=== PATIENT | male | born 1985 | race Two or more races ===

== ENCOUNTER 2021-03-17 09:07 | Emergency (ER) | payer OTHER, SELFPAY ==
--- NOTE | ~2021-03-17 | XR_ITS ---
EXAMINATION: XR CHEST CLINICAL INFORMATION: Productive cough COMPARISON: None TECHNIQUE: 2 views of the chest were obtained. FINDINGS: No significant abnormality is noted involving the heart, lungs, mediastinum, bony thorax or soft tissues. XR/XR chest 2V IMPRESSION: Unremarkable examination.
--- NOTE | ~2021-03-17 | CT_ITS ---
EXAMINATION: CT ABDOMEN AND PELVIS WITH CONTRAST CLINICAL INFORMATION: URI symptoms with associated diarrhea and right lower quadrant abdominal pain. COMPARISON: Chest x-ray performed same day TECHNIQUE: Multidetector volumetric images were obtained from the superior aspect of the liver through the pubic symphysis following administration 85 mL of Omnipaque 350 intravenous contrast. Sagittal and coronal reformatted images were obtained on the technologist's workstation. Oral contrast: No This CT examination was performed using dose optimization techniques as appropriate, variously including the following: *Automated exposure control *Adjustment of mA and/or kV according to patient size (this includes techniques or standardized protocols for targeted exams where dose is matched to indication/reason for exam; i.e. extremities or head) *Use of iterative reconstruction technique DLP: 611 mGy-cm FINDINGS: LUNG BASES: The visualized lung bases are unremarkable. LIVER, GALLBLADDER, AND BILIARY TREE: The liver is normal in size, shape, and attenuation. No focal hepatic lesion or biliary ductal dilatation is present. The gallbladder is unremarkable with no evidence of radiopaque gallstones, gallbladder wall thickening, or obvious pericholecystic inflammatory changes. PANCREAS: Unremarkable. SPLEEN: Unremarkable. ADRENAL GLANDS: Unremarkable. KIDNEYS AND URETERS: The kidneys are normal in size, shape, and attenuation. No hydronephrosis, hydroureter, or calculi seen. No perinephric stranding. BLADDER: Unremarkable. GASTROINTESTINAL TRACT: The small and large bowel are unremarkable. The appendix is unremarkable. ABDOMINAL WALL: No significant hernia is appreciated. LYMPH NODES: Normal. VASCULAR: Unremarkable. PELVIC VISCERA: Unremarkable. OSSEOUS STRUCTURES: Unremarkable. CT/CT abdomen pelvis w con IMPRESSION: No significant abnormality.
[2021-03-17 09:48] VITALS: BP 120/86; PULSE 81; RESP 16; TEMP 36.3; O2SAT 96
[2021-03-17 10:01] VITALS: BP 124/82; PULSE 81; RESP 20; TEMP 36.3; O2SAT 97; BMI 30.5
--- NOTE | 2021-03-17 10:09 | PC.NURSE ---
Pt alert and oriented x3, vss. Pt states since last tuesday he has been having full body aches and stuffy nose. He states last night he took nyquil with some relief. Pt denies any medical issues/any prescriptive meds. No apparent distress noted, pt awaiting ed provider.
[2021-03-17 10:46] LABS: IDNOW Serial# 9DD0AD1C; Strep A Nucleic Acid Negative (Negative)
--- NOTE | 2021-03-17 11:00 | PC.NURSE ---
Iv line established, labs drawn, fluid hung. Pt resting quietly in room. Lab results pending.
[2021-03-17 11:02] LABS: Influenza A PCR NEGATIVE (Negative); Influenza B PCR NEGATIVE (Negative); Resp Syncy Virus RNA Qual PCR NEGATIVE (Negative); SARS COV2 PCR INHOUSE NEGATIVE (Negative)
[2021-03-17] MEDS: 0.9 % Sodium Chloride 1,000 ML 999 ML IVCONT (11:09)
[2021-03-17 11:12] LABS: MANUAL DIFF FLAG NO
[2021-03-17 11:15] LABS: Basophils Percent Auto 0.4 % (0-2); Eosinophils Absolute Auto 0.4 X10*3/uL (0.0-0.4); Eosinophils Percent Auto 4.7 % (0-4); Hemoglobin 15.5 g/dl (14.0-18.0); Imm Gran Abs Auto 0.03 X10*3/uL (0.00-0.03); Imm Gran Pct Auto 0.4 % (0.0-0.4); Lymphocytes Percent Auto 26.4 % (20-40); Mean Corpuscular HGB Conc 34.4 g/dl (31.0-36.0); Mean Corpuscular Hemoglobin 29.9 pg (27.0-33.0); Mean Corpuscular Volume 86.7 fL (80-98); Mean Platelet Volume 11.4 fL (9.4-12.4); Monocytes Absolute Auto 0.7 X10*3/uL (0.1-1.2); Monocytes Percent Auto 8.8 % (2-11); Neutrophils Absolute Auto 4.4 X10*3/uL (2.0-8.3); Neutrophils Percent Auto 59.3 % (45-73); Platelet Count 178 X10*3/uL (160-400); Red Blood Count 5.19 X10*6/uL (4.60-5.80); Red Cell Distribution Width 12.5 % (11.0-16.0); White Blood Count 7.4 X10*3/uL (4.8-10.8)
[2021-03-17 11:38] LABS: Alanine Aminotransferase 36 U/L (0-40); Albumin Level 4.6 g/dL (3.5-5.0); Alkaline Phosphatase 68 U/L (39-117); Anion Gap 15 (12-20); Aspartate Amino Transferase 28 U/L (5-37); Bilirubin Total 0.8 mg/dL (0.0-1.0); Blood Urea Nitrogen 12 mg/dL (9-16); Calcium 9.8 mg/dL (8.4-10.2); Carbon Dioxide 28 mmol/L (22-29); Chloride 103 mmol/L (96-108); Creatinine Clr Calc Pharmacy 125.3; Estimated Glomerular Filt Rate > 60; Glucose Random 87 mg/dL (60-115); Lipase 34 U/L (8-78); Potassium 4.5 mmol/L (3.3-5.1); Sodium 141 mmol/L (135-145); Total Protein 7.3 g/dL (6.5-8.0)
--- NOTE | 2021-03-17 11:52 | ED_ITS ---
HPI - General Adult General Chief complaint: Weakness Stated complaint: Sore throat Time Seen by Provider: 03/17/21 10:00 Source: patient Mode of arrival: ambulatory Limitations: language barrier ( Anguillan-speaking) History of Present Illness HPI narrative: 35-year-old male with no significant past medical history p resenting to the ED with multiple complaints which complaint generalized weakness, fatigue, body aches, stuffy nose, sore throat, productive cough with green-colored sputum, diarrhea and right lower quadrant abdominal pain since last Tuesday worse today. Reports he is not vaccinated to COVID. Denies any recent travel or sick contacts. Denies any possible bad food exposure. Denies any fevers, headaches, dizziness, change in vision, chest pain, shortness of breath, dyspnea on exertion, orthopnea, palpitations, nausea / vomiting, back pain, dysuria, hematuria, abnormal penile discharge, black or bloody stools, constipation or any other symptoms complaints or concerns at this time. Related Data Previous Rx's Medication Instructions Recorded azithromycin See Rx Instructions .ROUTE 03/17/21 .COMPLEX #6 tab cyclobenzaprine 10 mg PO Q8H #10 tab 03/17/21 dicyclomine 10 mg PO BID #14 cap 03/17/21 ibuprofen 800 mg PO Q8H PRN #14 tab 03/17/21 Allergies Allergy/AdvReac Type Severity Reaction Status Date / Time SEAFOOD Allergy Unknown ANAPHYLAXIS Uncoded 05/29/20 19:48 Review of Systems Review of Systems: Constitutional : positive fatigue/malaise, No Weight loss, No Fever, No Chills, No Night Sweats ENT/Mouth: No ear pain, No sore throat, No Difficulty swallowing Cardiovascular : No Chest Pain, No SOB, No Dyspnea on Exertion, No Orthopnea, NoEdema, No Palpitations Respiratory : positive Cough with green-colored sputum, No Wheezing, No Dyspnea Gastrointestinal : positive right lower quadrant abdominal pain, positive diarrhea, No Nausea, No Vomiting, No blood streaked emesis, No coffee-ground emesis, No gross hematemesis, No blood streak stool, No gross hematochezia, No Melena Genitourinary : No irregular bleeding, No Dysuria, No Urinary Frequency, No Hematuria,No Urinary Incontinence, No Urgency, No Flank Pain Musculoskeletal : positive myalgias, No joint pain, No Joint Swelling Skin : No Skin Lesions, No rash Neuro : positive general weakness, no focal weakness, No Numbness, No Paresthesias, No Loss of Consciousness, NoDizziness, No Headache Psych : No Social Issues, Heme/Lymph: No Bruising, No Bleeding,No Lymphadenopathy Endocrine : No Polyuria, No Polydipsia, No Temperature Intolerance Yes all other systems are reviewed and are negative [facility] Past Medical History Attestation statement: The following information was validated with the patient. Social History Social History Patient Tobacco Use Status: Never used Tobacco Use of substances other than those prescribed or required for medical reasons: No Advance Directives: Yes Advance Directives Information Provided: Yes Advance Directives on File: No Physical Exam Vital Signs: Vital Signs: Last Vital Signs Temp 97.4 F 03/17/21 10:01 Pulse 67 03/17/21 11:53 Resp 18 03/17/21 11:53 BP 113/68 03/17/21 11:53 Pulse Ox 99 03/17/21 11:53 Body Mass Index 30.5 vital signs have been reviewed as normal and appeared to be correct. Blood pressure normal. Heart rate normal. Respiration rate normal. Temperature normal. Oxygen saturation normal. Appearance: Alert. Oriented X3. No acute distress. Head: Normal external exam. Normocephalic. Atraumatic. No Kaye signs noted. No raccoon eyes noted Eyes: PERRLA. EOMI. Conjunctiva and sclera normal. Eyelids normal. ENT: EAC normal. TM's Normal. Pharynx normal. Uvula midline. Moist mucous membranes. No trismus noted. No drooling noted. No muffled voice noted. Neck: Normal inspection. Neck supple. FROM. No adenopathy. Thyroid Normal. No meningeal signs. No neck mass noted. CVS: Normal heart rate and rhythm. Heart sound normal. Pulses normal throughout. No murmurs/rales/gallops. Respiratory: No respiratory distress. Painless inspiration. Breath sounds normal. No wheezes/rales/rhonchi noted. Chest nontender. No accessory muscle usage noted or decreased air movement noted. Abdomen: Soft and mild tenderness to palpation to right lower quadrant. Nondistended. No guarding. No rigidity. Bowel sounds normal in all 4 quadrants. No distention noted. No organomegaly noted. No visible injury noted. No rebound tenderness. Negative Rovsing sign. Negative obturator's sign. Negative psoas sign. Negative Hall sign. Back: No CVA tenderness. Full range of motion noted. No rashes/lesion/induration/fluctuance or signs of infection noted. Skin: Skin warm and dry. Normal skin color. Normal skin turgor. No rashes/lesions/lacerations noted. Extremities: No lower extremity edema. Extremities exhibit normal range of motion. Extremities nontender. Neuro: Oriented X 3. No motor deficit. No sensory deficit. Reflexes normal. Normal steady gait. No focal neuro deficits noted. Vascular: + radial pulses/+ 2 distal pedal pulses/+2 dorsalis pedis b/l. Normal cap refill. No cyanosis noted to upper extremity nails and lower extremity toes nails. Course Course Course Narrative: 10:30am - 35-year-old male with no significant past medical history presenting to the ED with multiple complaints which complaint generalized weakness, fatigue, body aches, stuffy nose, sore throat, productive cough with green-colored sputum, diarrhea and right lower quadrant abdominal pain since last Tuesday worse today. Plan: Labs, COVID/RSV/flu swab, UA, CT scan abdomen pelvis with IV contrast. Provide a L of IV fluids and re-evaluate. Reevaluation(s) Reevaluation #1: - Labs within normal limits. COVID/RSV/ flu negative. Chest x-ray within normal limits no acute processes noted. CT scan of abdomen pelvis within normal limits no acute processes noted. Will DC home with sympto matic treatment along with instructions to return if any new or worsening symptoms to follow up with primary care provider. Patient understands agrees with this plan. Time: 14:02 Medical Decision Making Medical Records Medical records reviewed: Yes I reviewed the patient's medical records. Lab Data Lab results reviewed: Yes I reviewed the patient's lab results. Result diagrams: 03/17/21 11:04 03/17/21 11:03 Labs: Lab Results 03/17/21 03/17/21 03/17/21 Range/Units 10:20 10:20 11:03 WBC (4.8-10.8) X10*3/uL RBC (4.60-5.80) X10*6/uL Hgb (14.0-18.0) g/dl Hct (42-52) % MCV (80-98) fL MCH (27.0-33.0) pg MCHC (31.0-36.0) g/dl RDW (11.0-16.0) % Plt Count (160-400) X10*3/uL MPV (9.4-12.4) fL Immature Gran % (Auto) (0.0-0.4) % Neut % (Auto) (45-73) % Lymph % (Auto) (20-40) % [place] % (Auto) (2-11) % Eos % (Auto) (0-4) % Baso % (Auto) (0-2) % Lymph # (Auto) (1.2-4.9) X10*3/uL [place] # (Auto) (0.1-1.2) X10*3/uL Eos # (Auto) (0.0-0.4) X10*3/uL Baso # (Auto) (0.0-0.2) X10*3/uL Abs Immat Gran (auto) (0.00-0.03) X10*3/uL Absolute Neuts (auto) (2.0-8.3) X10*3/uL Absolute Nucleated RBC (0.0-0.012) X10*3/uL Nucleated RBC % (auto) (0.0-0.2) /100WBC Sodium 141 (135-145) mmol/L Potassium 4.5 (3.3-5.1) mmol/L Chloride 103 (96-108) mmol/L Carbon Dioxide 28 (22-29) mmol/L Anion Gap 15 (12-20) BUN 12 (9-16) mg/dL Creatinine 0.89 (0.5-1.4) mg/dL Estim Creat Clear Calc 125.3 Estimated GFR > 60 Random Glucose 87 (60-115) mg/dL Calcium 9.8 (8.4-10.2) mg/dL Magnesium 2.0 (1.6-2.6) mg/dL Total Bilirubin 0.8 (0.0-1.0) mg/dL AST 28 (5-37) U/L ALT 36 (0-40) U/L Alkaline Phosphatase 68 (39-117) U/L Total Protein 7.3 (6.5-8.0) g/dL Albumin 4.6 (3.5-5.0) g/dL Lipase 34 (8-78) U/L Coronavirus (PCR) NEGATIVE (Negative) Influenza Type A (PCR) NEGATIVE (Negative) Influenza Type B (PCR) NEGATIVE (Negative) RSV RNA Qual (PCR) NEGATIVE (Negative) S. pyogenes GrpA JUNAID Negative (Negative) 03/17/21 Range/Units 11:04 WBC 7.4 (4.8-10.8) X10*3/uL RBC 5.19 (4.60-5.80) X10*6/uL Hgb 15.5 (14.0-18.0) g/dl Hct 45.0 (42-52) % MCV 86.7 (80-98) fL MCH 29.9 (27.0-33.0) pg MCHC 34.4 (31.0-36.0) g/dl RDW 12.5 (11.0-16.0) % Plt Count 178 (160-400) X10*3/uL MPV 11.4 (9.4-12.4) fL Immature Gran % (Auto) 0.4 (0.0-0.4) % Neut % (Auto) 59.3 (45-73) % Lymph % (Auto) 26.4 (20-40) % [place] % (Auto) 8.8 (2-11) % Eos % (Auto) 4.7 H (0-4) % Baso % (Auto) 0.4 (0-2) % Lymph # (Auto) 2.0 (1.2-4.9) X10*3/uL [place] # (Auto) 0.7 (0.1-1.2) X10*3/uL Eos # (Auto) 0.4 (0.0-0.4) X10*3/uL Baso # (Auto) 0.0 (0.0-0.2) X10*3/uL Abs Immat Gran (auto) 0.03 (0.00-0.03) X10*3/uL Absolute Neuts (auto) 4.4 (2.0-8.3) X10*3/uL Absolute Nucleated RBC 0.000 (0.0-0.012) X10*3/uL Nucleated RBC % (auto) 0.0 (0.0-0.2) /100WBC Sodium (135-145) mmol/L Potassium (3.3-5.1) mmol/L Chloride (96-108) mmol/L Carbon Dioxide (22-29) mmol/L Anion Gap (12-20) BUN (9-16) mg/dL Creatinine (0.5-1.4) mg/dL Estim Creat Clear Calc Estimated GFR Random Glucose (60-115) mg/dL Calcium (8.4-10.2) mg/dL Magnesium (1.6-2.6) mg/dL Total Bilirubin (0.0-1.0) mg/dL AST (5-37) U/L ALT (0-40) U/L Alkaline Phosphatase (39-117) U/L Total Protein (6.5-8.0) g/dL Albumin (3.5-5.0) g/dL Lipase (8-78) U/L Coronavirus (PCR) (Negative) Influenza Type A (PCR) (Negative) Influenza Type B (PCR) (Negative) RSV RNA Qual (PCR) (Negative) S. pyogenes GrpA JUNAID (Negative) Imaging Data Chest x-ray: Attestation: I personally reviewed and interpreted this imaging study as follows: Radiologist's impression: FINDINGS: No significant abnormality is noted involving the heart, lungs, mediastinum, bony thorax or soft tissues. XR/XR chest 2V IMPRESSION: Unremarkable examination. CT scan - abdomen: Attestation: I personally reviewed and interpreted this imaging study as follows: Radiologist's impression: FINDINGS: LUNG BASES: The visualized lung bases are unremarkable. LIVER, GALLBLADDER, AND BILIARY TREE: The liver is normal in size, shape, and attenuation. No focal hepatic lesion or biliary ductal dilatation is present. The gallbladder is unremarkable with no evidence of radiopaque gallstones, gallbladder wall thickening, or obvious pericholecystic inflammatory changes. PANCREAS: Unremarkable. SPLEEN: Unremarkable. ADRENAL GLANDS: Unremarkable. KIDNEYS AND URETERS: The kidneys are normal in size, shape, and attenuation. No hydronephrosis, hydroureter, or calculi seen. No perinephric stranding. BLADDER: Unremarkable. GASTROINTESTINAL TRACT: The small and large bowel are unremarkable. The appendix is unremarkable. ABDOMINAL WALL: No significant hernia is appreciated. LYMPH NODES: Normal. VASCULAR: Unremarkable. PELVIC VISCERA: Unremarkable. OSSEOUS STRUCTURES: Unremarkable. CT/CT abdomen pelvis w con IMPRESSION: No significant abnormality. Discharge Plan Discharge Clinical Impression: Acute viral syndrome, Gastroenteritis Patient Disposition: Home, Self-Care Instructions: Gastroenteritis (ED), Viral Syndrome (ED) Prescriptions: New dicyclomine 10 mg capsule 10 mg PO BID Qty: 14 RF: 0 cyclobenzaprine 10 mg tablet 10 mg PO Q8H Qty: 10 RF: 0 azithromycin 250 mg tablet See Rx Instructions .ROUTE .COMPLEX Qty: 6 RF: 0 ibuprofen 800 mg tablet 800 mg PO Q8H PRN (Reason: pain) Qty: 14 RF: 0 Referrals: Physician,Unknown [Primary Care Provider] - 2 days (your pcp) Stand Alone Forms: Work/School Release Print Language: Anguillan
[2021-03-17 11:53] VITALS: BP 113/68; PULSE 67; RESP 18; O2SAT 99
[2021-03-17] MEDS: iohexoL 350 MG/ML 100 ML INFUS..BTL 85 ML IV (13:04)
== END 2021-03-17 14:14 | disposition home or self-care (01) ==
PROVIDERS: Physician Assistant Medical; Emergency Provider Emergency Medicine
DX: B34.9 Viral infection, unspecified (principal); K52.9 Noninfective gastroenteritis and colitis, unspecified; Z20.822 Contact with and (suspected) exposure to COVID-19
CPT/HCPCS: 0241U; 36415; 71046; 74177; 80053; 83690; 83735; 85025; 87651; 96360; 99284; Q9967

== ENCOUNTER 2021-09-30 08:06 | Emergency (ER) | payer OTHER, SELFPAY ==
--- NOTE | ~2021-09-30 | XR_ITS ---
EXAMINATION: XR CHEST CLINICAL INFORMATION: Cough COMPARISON: Previous chest x-ray March 2021 TECHNIQUE: 2 views of the chest were obtained. FINDINGS: No significant abnormality is noted involving the heart, lungs, mediastinum, bony thorax or soft tissues. XR/XR chest 2V IMPRESSION: Unremarkable examination.
[2021-09-30 08:12] VITALS: BP 122/82; PULSE 64; RESP 19; O2SAT 99; BMI 31.0
--- NOTE | 2021-09-30 09:11 | ED.URI ---
HPI - URI/Sore Throat General Chief Complaint: Upper Respiratory Symptoms Stated Complaint: Pain when breathing/cough Time Seen by Provider: 09/30/21 08:39 Source: patient Mode of arrival: ambulatory Limitations: no limitations History of Present Illness HPI Narrative: this is a 55 years old the patient presented to the emergency department complaining of cough or congestion he took a COVID test home which was negative, he denies any fever chills vomiting MD elicited complaint: cough Onset (ago): day(s) (1) Consistency: constant Severity: moderate Description of mucous: clear Exacerbating factors: nothing Relieving factors: nothing Associated symptoms: denies other symptoms Related Data Previous Rx's Medication Instructions Recorded azithromycin 250 mg tablet See Rx Instructions .ROUTE 03/17/21 .COMPLEX #6 tab cyclobenzaprine 10 mg tablet 10 mg PO Q8H #10 tab 03/17/21 dicyclomine 10 mg capsule 10 mg PO BID #14 cap 03/17/21 ibuprofen 800 mg tablet 800 mg PO Q8H PRN #14 tab 03/17/21 Allergies Allergy/AdvReac Type Severity Reaction Status Date / Time SEAFOOD Allergy Unknown ANAPHYLAXIS Uncoded 05/29/20 19:48 Review of Systems Review of Systems: Yes all other systems are reviewed and are negative ENT: Reports system reviewed and no additional complaints, except as documented and Denies odynophagia Cardiovascular: Cardiovascular: Reports no additional cardiovascular complaints Respiratory: Respiratory: Reports no additional respiratory complaints Gastrointestinal: Gastrointestinal: Denies odynophagia, Denies vomiting and Denies hematemesis Musculoskeletal: Musculoskeletal: Reports no additional musculoskeletal complaints Neurologic: Reports system reviewed and no additional complaints, except as documented [facility] Social History Social History Patient Tobacco Use Status: Never used Tobacco Advance Directives: No Advance Directives Information Provided: No Physical Exam Vital Signs: Vital Signs: Last Vital Signs Pulse 64 09/30/21 08:12 Resp 19 09/30/21 08:12 BP 122/82 09/30/21 08:12 Pulse Ox 99 09/30/21 08:12 BMI result Body Mass Index 31.0 Const: General: cooperative and anxious Orientation/consciousness: patient oriented x3 HENMT: Head: Yes normal to inspection Face and sinus: Yes normal facial exam Mouth: Normal oral and palatal mucosa present Throat: Yes posterior oropharynx normal Neck: Neck: Yes normal visual inspection, Yes full ROM, Yes no lymphadenopathy and Yes no meningeal signs Thyroid: Thyroid normal Chest: Chest palpation & inspection: normal inspection of the chest Resp: Effort & Inspection: normal respiratory effort and able to speak in complete sentences Auscultation: clear to auscultation bilaterally Cardio: Jugular venous distension: no JVD Rate: regular rate Rhythm: regular rhythm GI: Inspection: Yes normal to inspection Palpation (GI): Soft to palpation, not firm, nontender and no guarding Percussion: Yes normal to percussion Neuro: General: patient oriented x3 and no meningeal signs Course Reevaluation(s) Reevaluation #1: Covid negative cxr negative,SAt 99% OK to d/c MDM - URI/Sore Throat Lab Data Labs: Lab Results 09/30/21 Range/Units 08:53 COVID-19 (RICARDO) Negative (Negative) COVID-19 Clin Com See Note Imaging Data Chest x-ray: Radiologist's impression: EXAMINATION: XR CHEST CLINICAL INFORMATION: Cough COMPARISON: Previous chest x-ray March 2021 TECHNIQUE: 2 views of the chest were obtained. FINDINGS: No significant abnormality is noted involving the heart, lungs, mediastinum, bony thorax or soft tissues. XR/XR chest 2V IMPRESSION: Unremarkable examination. Dictated By: Ynes Peters MD Signed By: <Electronically signed by Ynes Peters MD in OV> 09/30/21 0949 Discharge Plan Discharge Clinical Impression: Upper respiratory infection Patient Disposition: Home, Self-Care Instructions: Upper Respiratory Infection (ED) Additional Instructions: follow-up with your primary care physician, return to the emergency room if you worse any concern Prescriptions: No Action dicyclomine 10 mg capsule 10 mg PO BID Qty: 14 RF: 0 cyclobenzaprine 10 mg tablet 10 mg PO Q8H Qty: 10 RF: 0 azithromycin 250 mg tablet See Rx Instructions .ROUTE .COMPLEX Qty: 6 RF: 0 ibuprofen 800 mg tablet 800 mg PO Q8H PRN (Reason: pain) Qty: 14 RF: 0 Stand Alone Forms: Work/School Release Interventions: ED Discharge Assessment Last Done: 09/30/21 10:42 Discharge Date/Time: 09/30/21 10:43
[2021-09-30 09:19] LABS: COVID-19 Test Negative (Negative); IDNOW Serial# 9DD0AD1C
== END 2021-09-30 10:43 | disposition home or self-care (01) ==
PROVIDERS: Emergency Provider Emergency Medicine
DX: J06.9 Acute upper respiratory infection, unspecified (principal); R05.9 Cough, unspecified; Z20.822 Contact with and (suspected) exposure to COVID-19; Z79.899 Other long term (current) drug therapy
CPT/HCPCS: 71046; 87635; 99283

== ENCOUNTER 2021-11-24 08:07 | Emergency (ER) | payer OTHER, SELFPAY ==
[2021-11-24 08:10] VITALS: BP 127/83; PULSE 92; RESP 20; TEMP 36.7; O2SAT 97; BMI 27.7
--- NOTE | 2021-11-24 08:30 | ED.FEVER ---
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 Limitations: no limitations History of Present Illness HPI Narrative: fever, cough, sore throat, chills, headaches vaccinated against covid x 2 MD elicited complaint: fever Onset (ago): day(s) (yesterday AM) Exacerbating factors: swallowing Relieving factors: nothing Associated symptoms: chills, headache, rhinorrhea, sore throat and cough Treatments prior to arrival fever: cold medicine (robitussin) Related Data Previous Rx's Medication Instructions Recorded azithromycin 250 mg tablet See Rx Instructions .ROUTE 03/17/21 .COMPLEX #6 tab cyclobenzaprine 10 mg tablet 10 mg PO Q8H #10 tab 03/17/21 dicyclomine 10 mg capsule 10 mg PO BID #14 cap 03/17/21 ibuprofen 800 mg tablet 800 mg PO Q8H PRN #14 tab 03/17/21 amoxicillin 875 mg-potassium 1 tab PO BID #20 tab 11/24/21 clavulanate 125 mg tablet Allergies Allergy/AdvReac Type Severity Reaction Status Date / Time SEAFOOD Allergy Unknown ANAPHYLAXIS Uncoded 05/29/20 19:48 Review of Systems Review of Systems: Constitutional : positive Fever, positive Chills, positive fatigue, positive Malaise ENT/Mouth : positive sore throat, positive runny nose Eyes: No Discharge Cardiovascular : No Chest Pain, No SOB Respiratory : pos Cough, No Sputum Gastrointestinal : No Nausea, No Vomiting, No Diarrhea Genitourinary : No Dysuria, No Urinary Frequency Musculoskeletal : positive Myalgia Skin : No rash Neuro : No Headache PMFSH Past Medical History Attestation statement: The following information was validated with the patient. Medical History No pertinent past medical history Social History Social History Patient Tobacco Use Status: Never used Tobacco Advance Directives: No Advance Directives Information Provided: No Physical Exam Vital Signs: Vital Signs: Last Vital Signs Temp 98.1 F 11/24/21 08:10 Pulse 92 11/24/21 08:10 Resp 20 11/24/21 08:10 BP 127/83 11/24/21 08:10 Pulse Ox 97 11/24/21 08:10 BMI result Body Mass Index 27.7 Appearance: Alert. Oriented X3. No acute distress. Eyes: Pupils equal, round and reactive to light. ENT: Pharynx no exudates, moderate generalized erythema uvula midline, tolerating secretions, normal voice Neck: Normal inspection. Neck supple. CVS: Normal heart rate and rhythm. Pulses normal. Respiratory: No respiratory distress. Breath sounds normal. Abdomen: Soft and non-tender. Skin: Skin warm and dry. Normal skin color. Normal skin turgor. Extremities: No lower extremity edema. No calf ttp Neuro: Oriented X 3. No motor deficit. No sensory deficit. MDM - Fever MDM Narrative Medical decision making narrative: 36 yo male no sig PMH here with c/o sore throat, headaches, cough, runny nose, overall not feeling well states he is vaccinated at this time will obtain COVID/flu swab. Give motrin. no signs of deeper space infection. Likely tonsillitis anticipate amoxicillin on DC given appearance of tonsils. Lab Data Labs: Lab Results 11/24/21 11/24/21 Range/Units 08:57 08:57 COVID-19 (RICARDO) Negative (Negative) COVID-19 Clin Com See Note Influenza Type A (JUNAID) Negative (Negative) Influenza Type B (JUNAID) Negative (Negative) Influenza A & B Note See Note Discharge Plan Discharge Clinical Impression: Acute tonsillitis Qualifiers: Pharyngitis/tonsillitis etiology: other specified organisms Qualified Code(s): J03.80 - Acute tonsillitis due to other specified organisms Patient Disposition: Home, Self-Care Instructions: Tonsillitis (ED) Additional Instructions: return to ED for any worsening symptoms or concerns COVID NEGATIVE Prescriptions: New amoxicillin-pot clavulanate 875-125 mg tablet 1 tab PO BID Qty: 20 0RF No Action dicyclomine 10 mg capsule 10 mg PO BID Qty: 14 0RF cyclobenzaprine 10 mg tablet 10 mg PO Q8H Qty: 10 0RF azithromycin 250 mg tablet See Rx Instructions .ROUTE .COMPLEX Qty: 6 0RF Rx Instructions: take 500 mg today (day 1), then 250 mg for 4 days (days 2-5) ibuprofen 800 mg tablet 800 mg PO Q8H PRN (Reason: pain) Qty: 14 0RF Stand Alone Forms: Work/School Release Print Language: Croatian
[2021-11-24] MEDS: Ibuprofen 600 MG TABLET PO (08:53)
[2021-11-24 09:27] LABS: IDNOW Serial# 08D9AD1C; Influenza A Negative (Negative); Influenza B2 Negative (Negative)
[2021-11-24 09:43] LABS: COVID-19 Test Negative (Negative)
== END 2021-11-24 10:00 | disposition home or self-care (01) ==
PROVIDERS: Emergency Provider Emergency Medicine
DX: J03.80 Acute tonsillitis due to other specified organisms (principal); Z20.822 Contact with and (suspected) exposure to COVID-19; R50.9 Fever, unspecified
CPT/HCPCS: 87502; 87635; 99283

== ENCOUNTER 2021-12-29 00:19 | Emergency (ER) | payer OTHER, SELFPAY ==
[2021-12-29 00:32] VITALS: BP 106/64; PULSE 75; RESP 18; TEMP 36.5; O2SAT 99; BMI 32.5
[2021-12-29 00:56] LABS: Strep A Nucleic Acid Negative (Negative)
[2021-12-29 01:00] LABS: COVID-19 Test Negative (Negative)
[2021-12-29 01:01] LABS: IDNOW Serial# 16C4AD1C; Influenza A Negative (Negative); Influenza B2 Negative (Negative)
--- NOTE | 2021-12-29 01:31 | ED_ITS ---
HPI - General Adult General Chief complaint: General Medical Stated complaint: sore throat Time Seen by Provider: 12/29/21 00:21 Source: patient and podiatric surgeon Mode of arrival: ambulatory History of Present Illness HPI narrative: 36-year-old male who presents without significant past medical history other than seasonal allergies and states having a subjective fever for a couple of days associated with nasal congestion, sore throat but otherwise denies any GI or symptoms. Related Data Previous Rx's Medication Instructions Recorded azithromycin 250 mg tablet See Rx Instructions .ROUTE 03/17/21 .COMPLEX #6 tab cyclobenzaprine 10 mg tablet 10 mg PO Q8H #10 tab 03/17/21 dicyclomine 10 mg capsule 10 mg PO BID #14 cap 03/17/21 ibuprofen 800 mg tablet 800 mg PO Q8H PRN #14 tab 03/17/21 amoxicillin 875 mg-potassium 1 tab PO BID #20 tab 11/24/21 clavulanate 125 mg tablet Allergies Allergy/AdvReac Type Severity Reaction Status Date / Time SEAFOOD Allergy Unknown ANAPHYLAXIS Uncoded 05/29/20 19:48 Review of Systems Review of Systems: Pertinent positives and negatives as stated in HPI 10 point review of systems is otherwise negative. PMFSH Past Medical History Source: nursing notes reviewed Medical History No pertinent past medical history Social History Social History Patient Tobacco Use Status: Never used Tobacco Advance Directives: No Advance Directives Information Provided: No Physical Exam ED Vital Signs: Vital Signs - 24 hr 12/29/21 00:32 Temperature 97.7 F Pulse Rate 75 Respiratory Rate 18 Blood Pressure 106/64 Pulse Oximetry 99 BMI result Body Mass Index 32.5 VITAL SIGNS: Reviewed. GENERAL: Well developed, well nourished, in no acute distress. HEAD: Normocephalic/atraumatic EYES: PERRLA, EOMI EARS: Ext canals without abnormality, TMs non-bulging and non-erythematous NOSE: Nasal congestion, boggy turbinates OROPHARYNX: no oral lesions noted, posterior pharynx clear and non-erythematous without noted tonsillar enlargement/erythema/exudates NECK: Supple, no adenopathy LUNGS: Normal breath sounds. No adventitious sounds or accessory muscle use. SpO2<99> CARDIOVASCULAR: Regular rate and rhythm without noted murmurs ABDOMEN: Soft, non-tender, non-distended with bowel sounds. NEUROLOGIC: Alert and oriented x 4. Strength and sensation to light touch were grossly intact x 4. Course Course Course Narrative: 36-year-old male with history and clinical presentation consistent with pharyngitis and on review of all investigations most consistent with postnasal drip symptoms associated with seasonal allergies. Patient further endorse that he did get some improvement with the Claritin and has taken Tylenol home. Patient is provided with ibuprofen and Benadryl here and otherwise discharged home. Medical Decision Making Lab Data Labs: Lab Results 12/29/21 12/29/21 12/29/21 Range/Units 00:36 00:36 00:36 COVID-19 (RICARDO) Negative (Negative) COVID-19 Clin Com See Note Influenza Type A (JUNAID) Negative (Negative) Influenza Type B (JUNAID) Negative (Negative) Influenza A & B Note See Note S. pyogenes GrpA JUNAID Negative (Negative) Discharge Plan Discharge Clinical Impression: Seasonal allergies, Post-nasal drip Patient Disposition: Home, Self-Care Instructions: Postnasal Drip (DC), Allergic Rhinitis (ED) Additional Instructions: 1. Recomiende usar Flonase/Claritin de venta mariano alcira el d?a y luego Benadryl por la noche para mejorar el alivio de los s?ntomas. 2. Amos un seguimiento con saunders proveedor de atenci?n primaria en los pr?ximos 1 a 2 d?as si no mejora. Regrese a la juancho de emergencias si los s?ntomas empeoran. Prescriptions: No Action dicyclomine 10 mg capsule 10 mg PO BID Qty: 14 0RF cyclobenzaprine 10 mg tablet 10 mg PO Q8H Qty: 10 0RF azithromycin 250 mg tablet See Rx Instructions .ROUTE .COMPLEX Qty: 6 0RF Rx Instructions: take 500 mg today (day 1), then 250 mg for 4 days (days 2-5) ibuprofen 800 mg tablet 800 mg PO Q8H PRN (Reason: pain) Qty: 14 0RF amoxicillin-pot clavulanate 875-125 mg tablet 1 tab PO BID Qty: 20 0RF Stand Alone Forms: Work/School Release Print Language: Uzbek
[2021-12-29] MEDS: Ibuprofen 400 MG TABLET PO (01:40)
[2021-12-29] MEDS: diphenhydrAMINE HCL 25 MG TABLET PO (01:40)
== END 2021-12-29 01:52 | disposition home or self-care (01) ==
PROVIDERS: Emergency Provider Student in an Organized Health Care Education/Training Program
DX: J02.8 Acute pharyngitis due to other specified organisms (principal); R09.82 Postnasal drip; Z20.822 Contact with and (suspected) exposure to COVID-19; Z79.899 Other long term (current) drug therapy
CPT/HCPCS: 87502; 87635; 87651; 99283; 99284; Q0163

== ENCOUNTER 2022-11-01 07:46 | Emergency (ER) | payer OTHER, SELFPAY ==
[2022-11-01 07:58] VITALS: BP 139/87; PULSE 79; RESP 18; TEMP 36.1; O2SAT 98; BMI 29.3
[2022-11-01 11:23] VITALS: BP 118/70; PULSE 75; RESP 14; TEMP 36.7; O2SAT 97
[2022-11-01] MEDS: Meclizine HCl 25 MG TABLET PO (12:18)
--- NOTE | 2022-11-01 13:11 | ED.DIZZY ---
HPI - Dizziness General Chief Complaint: Dizziness Stated Complaint: Vertigo Time Seen by Provider: 11/01/22 11:09 History of Present Illness HPI Narrative: Patient complains of dizziness similar to prior episodes of vertigo where he feels slightly off balance and feels like the room is spinning same as prior episodes treated with meclizine but he no longer has the medication He has no headache no fever no trauma no injury no weakness to either side of the body he denies any facial droop never had confusion or difficulty forming words, he has had no nausea or vomiting no fainting no feeling faint, no headache no weakness no confusion Related Data Previous Rx's Medication Instructions Recorded meclizine 25 mg tablet 25 mg PO TID PRN dizziness #20 tabs 11/01/22 Allergies Allergy/AdvReac Type Severity Reaction Status Date / Time SEAFOOD Allergy Unknown ANAPHYLAXIS Uncoded 11/01/22 08:02 [facility] Past Medical History Source: nursing notes reviewed Medical History No pertinent past medical history Social History Social History Patient Tobacco Use Status: Never used Tobacco Advance Directives: No Advance Directives Information Provided: No Physical Exam Vital Signs: Vital Signs: Last Vital Signs Temp 98.0 F 11/01/22 11:23 Pulse 75 11/01/22 11:23 Resp 14 11/01/22 11:23 BP 118/70 11/01/22 11:23 Pulse Ox 97 11/01/22 11:23 O2 Del Method 11/01/22 11:23 BMI result Body Mass Index 29.3 General appearance relaxed cooperative no acute distress The eyes no nystagmus, pupils equal round reactive to light extraocular motions are intact The sinuses nontender The ears are clear with normal membranes normal canals The pharynx is clear, membranes moist no redness swelling or exudate voice normal Neck is supple Chest clear to auscultation bilateral Heart no murmur Extremities for range of motion x4 Neuro gait was tested and he had a slightly wide gait but his balance was okay, cranial nerves 2-12 intact as tested, cerebellar exam with [id number] normal, motor 5/5 x4, sensation intact and symmetrical, interaction both comprehension expression and speech normal, no facial asymmetry Course Course Course Narrative: Patient with history of peripheral vertigo complaining of similar symptoms to the past but he is out of Antivert, meclizine which has worked very well in the past No neurologic deficit no headache He is given a dose of meclizine here, after the meclizine his symptoms had completely resolved, he is walking with normal balance normal gait no nausea no dizziness and feels back to normal and is discharged Medications Administered Discontinued Medications Generic Name Dose Route Start Last Admin Trade Name Freq PRN Reason Stop Dose Admin Meclizine HCl 25 mg 11/01/22 12:07 11/01/22 12:18 Meclizine Hcl 25 Mg Tablet PO 11/01/22 12:08 25 mg ONCE ONE Administration Discharge Plan Discharge Clinical Impression: Vertigo Patient Disposition: Home, Self-Care Additional Instructions: The dizziness and room spinning responded well to meclizine so I am giving you a prescription Return any time for uncontrolled dizziness loss of balance confusion severe headache weakness any worse condition or any concerns Prescriptions: New meclizine 25 mg tablet 25 mg PO TID PRN (Reason: dizziness) Qty: 20 0RF Stand Alone Forms: Work/School Release Interventions: ED Discharge Assessment Last Done: 11/01/22 13:29 Discharge Date/Time: 11/01/22 13:34
== END 2022-11-01 13:34 | disposition home or self-care (01) ==
PROVIDERS: Emergency Provider Emergency Medicine
DX: R42 Dizziness and giddiness (principal); R26.81 Unsteadiness on feet; R51.9 Headache, unspecified
CPT/HCPCS: 99283

== ENCOUNTER 2023-01-25 10:09 | Emergency (ER) | payer MEDICAID, SELFPAY ==
[2023-01-25 10:20] VITALS: BP 127/80; PULSE 64; RESP 18; TEMP 36.2; O2SAT 99; BMI 30.1
--- NOTE | 2023-01-25 10:35 | ED_ITS ---
HPI - URI/Sore Throat General Chief Complaint: Upper Respiratory Symptoms Stated Complaint: Sore Throat Cough Time Seen by Provider: 01/25/23 10:32 Source: patient, RN notes reviewed and old records reviewed Mode of arrival: ambulatory History of Present Illness HPI Narrative: 37-year-old male with no significant past medical history presenting to the ED complaining of sore throat & dry cough x 2 days. Reports subjective fever yesterday. Denies ear pain, chills, difficulty/inability to swallow, SOB/CP, travel, sick contacts MD elicited complaint: cough and sore throat Related Data Previous Rx's Medication Instructions Recorded meclizine 25 mg tablet 25 mg PO TID PRN dizziness #20 tabs 11/01/22 Allergies Allergy/AdvReac Type Severity Reaction Status Date / Time SEAFOOD Allergy Unknown ANAPHYLAXIS Uncoded 11/01/22 08:02 Review of Systems Review of Systems: Constitutional: +subj Fever, No Chills ENT/Mouth: No Ear Pain, No Nasal Congestion, No Sinus Pain, No Hoarseness,+ sore throat, No Rhinorrhea, No Swallowing Difficulty Cardiovascular: No Chest Pain, No SOB Respiratory: + Cough, No Sputum, No Wheezing Gastrointestinal: No Nausea, No Vomiting, No Diarrhea, No Constipation, No Abdominal pain Musculoskeletal: No joint pain, No Myalgias, No Joint Swelling Skin: No Skin Lesions, No rash Neuro: No Weakness Yes all other systems are reviewed and are negative Constitutional: Constitutional: Reports as per [facility] [place] Past Medical History Attestation statement: The following information was validated with the patient. Source: old records reviewed Medical History No pertinent past medical history Social History Social History Patient Tobacco Use Status: Never used Tobacco Advance Directives: No Physical Exam Vital Signs: Vital Signs: Last Vital Signs Temp 97.2 F 01/25/23 10:20 Pulse 64 01/25/23 10:20 Resp 18 01/25/23 10:20 BP 127/80 01/25/23 10:20 Pulse Ox 99 01/25/23 10:20 O2 Del Method Room Air 01/25/23 10:20 BMI result Body Mass Index 30.1 Const: General: cooperative, healthy appearing and no acute distress Orientation/consciousness: patient oriented x3 Limitations: no limitations HEENT: Head: Yes normal to inspection and Yes atraumatic Ears: hearing grossly normal bilaterally, external ears normal, TM's normal bilaterally and mastoids normal General nose exam: Normal external nose present Face and sinus: Yes normal facial exam Mouth: Normal oral and palatal mucosa present Throat: Yes tonsils normal, Yes uvula midline, No peritonsillar mass, Yes posterior oropharynx abnormal (slight erythema), No uvula laterally displaced and No uvular edema Eyes: General: appearance normal, both eyes and all related structures EOM: EOMs intact bilaterally Neck: Neck: Yes normal visual inspection, Yes no meningeal signs, Yes supple and No anterior neck swelling Resp: Effort & Inspection: normal respiratory effort and no respiratory distress Auscultation: clear to auscultation bilaterally, no crackles, no rhonchi and no wheezes Cardio: Rate: regular rate Heart sounds: S1 normal heart sound present and S2 normal heart sound present Skin: Rashes: no rashes Wounds: no wounds Neuro: General: patient oriented x3, tone normal and no meningeal signs Gait exam (Neuro): Normal gait present Extrem: General: Yes normal to inspection Course Course Course Narrative: -covid/flu and rapid strep negative Results discussed with patient including worrisome signs and symptoms and strict return precautions, and when to return to the emergency department. They verbalized understanding and feel safe for discharge at this time. Medications Administered Discontinued Medications Generic Name Dose Route Start Last Admin Trade Name Freq PRN Reason Stop Dose Admin Lidocaine HCl 5 ml 01/25/23 10:44 01/25/23 11:05 Lidocaine Hcl Viscous 2 % 15 Ml Solution MUCOUS MEM 01/25/23 10:45 5 ml ONCE ONE Administration Medical Decision Making Medical Decision Making MDM Narrative: 37-year-old male with no significant past medical history presenting to the ED complaining of sore throat & dry cough x 2 days. On exam vital signs stable, NAD, nontoxic appearing, posterior oropharynx with slight erythema, no exudates, uvula midline, talking in complete sentences, lungs CTA. Concern for viral syndrome vs strep pharyngitis. 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 Low suspicion for mastoiditis/otitis media Plan: COVID/influenza testing, rapid strep, viscous lidocaine Please refer to course for remaining clinical decision making, interpretation of labs/imaging results, and discussions with consultants and/or family members. Differential Diagnosis Differential Diagnoses: The differential diagnosis associated with the presentation includes As above Lab Data MDM Lab Attestation statement: I reviewed the patient's lab results. Labs: Lab Results 01/25/23 01/25/23 01/25/23 Range/Units 10:28 10:46 10:46 COVID-19 (RICARDO) Negative (Negative) COVID-19 Clin Com See Note Influenza Type A (JUNAID) Negative (Negative) Influenza Type B (JUNAID) Negative (Negative) Influenza A & B Note See Note S. pyogenes GrpA JUNAID Negative (Negative) Radiology Impression Discussion of test interpretation with radiology: I have reviewed the radiologist's reading. External Record Review External record reviewed: Inpatient record, Office record, Outpatient record, Prior outpatient labs, Prior outpatient radiology, Primary care record and Outside ED record Tests considered The following testing was considered but not selected: As above Discharge Plan Discharge Clinical Impression: Pharyngitis Patient Disposition: Home, Self-Care Instructions: Pharyngitis (ED) Prescriptions: No Action meclizine 25 mg tablet 25 mg PO TID PRN (Reason: dizziness) Qty: 20 0RF Referrals: Physician,Unknown J [Primary Care Provider] -
[2023-01-25 10:52] LABS: IDNOW Serial# 08D9AD1C; Strep A Nucleic Acid Negative (Negative)
[2023-01-25] MEDS: Lidocaine HCl Viscous 2 % 15 ML SOLUTION 5 ML MUCOUS MEM (11:05)
--- NOTE | 2023-01-25 11:08 | PC.NURSE ---
patient medicated per MAR
[2023-01-25 11:28] LABS: IDNOW Serial# BCCEAD1C; Influenza A Negative (Negative); Influenza B2 Negative (Negative)
[2023-01-25 11:29] LABS: COVID-19 Test Negative (Negative); IDNOW Serial# 08D9AD1C
== END 2023-01-25 12:21 | disposition home or self-care (01) ==
PROVIDERS: Physician Assistant; Emergency Provider Student in an Organized Health Care Education/Training Program
DX: J02.9 Acute pharyngitis, unspecified (principal); Z20.822 Contact with and (suspected) exposure to COVID-19
CPT/HCPCS: 87502; 87635; 87651; 99282; 99283

== ENCOUNTER 2023-03-09 08:34 | Emergency (ER) | payer MEDICAID, SELFPAY ==
--- NOTE | ~2023-03-09 | XR_ITS ---
EXAMINATION: XR LUMBOSACRAL SPINE CLINICAL INFORMATION: Back pain. COMPARISON: None available. TECHNIQUE: Three views of the lumbosacral spine. FINDINGS: There are 5 nonrib-bearing lumbar vertebral bodies. Relative straightening of the lumbar lordosis. Vertebral body heights and intervertebral disc spaces are maintained. Sacroiliac joints are intact. XR/XR lumbar spine 2-3V IMPRESSION: Relative straightening of the lumbar lordosis may be seen in the setting of muscle spasm.
[2023-03-09 08:38] VITALS: BP 175/90; PULSE 78; RESP 20; TEMP 36.6; O2SAT 99; BMI 29.6
--- NOTE | 2023-03-09 08:41 | ED.BACK ---
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 Patient reports that he was lifting a heavy box while he was at work and he immediately felt a spasm in his lower back and ultimately fell to his knees. Patient reports that he was on the ground for 5 minute due to the pain. Patient was able to get back up and ambulate afterwards. Patient denies any numbness or tingling into his lower extremities. Denies urinary or bowel incontinence. Denies any urinary symptoms. Denies taking any medications at home to treat his current symptoms. He has a history of low back pain, reports the intermittently has spasms in his back, unknown back diagnosis disease or disc problems. No other complaints or concerns at this time. MD elicited complaint: back pain Pertinent past history: prior back pain and recent trauma Onset (ago): hour(s) Timing: constant Severity: moderate Similar Symptoms Previously: Yes Quality: sharp and stabbing Location: lumbar spine Radiation: none Exacerbating factors: none Relieving factors: immobilization Context: while lifting Associated symptoms: denies other symptoms Work related injury: Yes Related Data Previous Rx's Medication Instructions Recorded meclizine 25 mg tablet 25 mg PO TID PRN dizziness #20 tabs 11/01/22 acetaminophen 325 mg capsule 650 mg PO Q6H PRN pain #30 caps 03/09/23 (Tylenol) ibuprofen 600 mg tablet 600 mg PO Q6H PRN pain #30 tabs 03/09/23 methocarbamol 1,000 mg tablet 1,000 mg PO TID #14 tabs 03/09/23 Allergies Allergy/AdvReac Type Severity Reaction Status Date / Time SEAFOOD Allergy Unknown ANAPHYLAXIS Uncoded 11/01/22 08:02 Review of Systems Review of Systems: Constitutional: No Weight loss, No Fever, No Chills, No Night Sweats, No Fatigue, No Malaise ENT/Mouth: No Hearing loss, No Ear Pain, No Nasal Congestion, No Sinus Pain, No Hoarseness, No sore throat, No Rhinorrhea, No Swallowing Difficulty Eyes: No Eye Pain, No Swelling, No Redness, No Foreign Body, No Discharge, No Vision Changes Cardiovascular: No Chest Pain, No SOB, No Dyspnea on Exertion, No Orthopnea, No Edema, No Palpitations Respiratory: No Cough, No Sputum, No Wheezing, No Smoke Exposure, No Dyspnea Gastrointestinal: No Nausea, No Vomiting, No Diarrhea, No Constipation, No Abdominal pain, No Hematochezia, No Melena Genitourinary: No irregular bleeding, No Dysuria, No Urinary Frequency, No Hematuria, No Urinary Incontinence/retention, No Urgency, No Flank Pain, No Urinary Flow Changes, No Hesitancy Musculoskeletal: No joint pain, No Myalgias, No Joint Swelling Skin: No Skin Lesions, No rash Neuro: No Weakness, No Numbness, No Paresthesias, No Loss of Consciousness, No Dizziness, No Headache Psych: No Anxiety/Panic, No Depression, No SI/HI/AH/VH, No Social Issues, Heme/Lymph: No Bruising, No Bleeding,No Lymphadenopathy Endocrine: No Polyuria, No Polydipsia, No Temperature Intolerance Yes all other systems are reviewed and are negative Constitutional: Constitutional: Reports as per [facility] Past Medical History Medical History No pertinent past medical history Social History Social History Patient Tobacco Use Status: Never used Tobacco Advance Directives: No Advance Directives Information Provided: No Physical Exam Vital Signs: Vital Signs: Last Vital Signs Temp 98.7 F 03/09/23 11:51 Pulse 68 03/09/23 11:51 Resp 18 03/09/23 11:51 BP 115/60 03/09/23 11:51 Pulse Ox 99 03/09/23 08:38 O2 Del Method Room Air 03/09/23 08:38 BMI result Body Mass Index 29.6 Const: General: cooperative, comfortable and no acute distress Orientation/consciousness: patient oriented x3 Limitations: no limitations HEENT: Head: Yes normal to inspection, Yes normocephalic and Yes atraumatic Ears: hearing grossly normal bilaterally General nose exam: Normal external nose present Face and sinus: Yes normal facial exam Mouth: Normal oral and palatal mucosa present, oropharynx normal and moist mucous membranes Throat: Yes posterior oropharynx normal Eyes: General: appearance normal, both eyes and all related structures Eyelids: Yes eyelids normal Conjunctivae: conjunctivae normal Sclerae: sclerae normal Pupils: Equal, round and reactive pupils present EOM: EOMs intact bilaterally Neck: Neck: Yes normal visual inspection, Yes full ROM and Yes no lymphadenopathy Lymphatic: no lymphadenopathy noted Chest: Chest palpation & inspection: normal inspection of the chest Resp: Effort & Inspection: normal respiratory effort and able to speak in complete sentences Auscultation: clear to auscultation bilaterally, no crackles, no rales, no rhonchi and no wheezes Cardio: Rate: regular rate Rhythm: regular rhythm Heart sounds: S1 normal heart sound present and S2 normal heart sound present GI: Inspection: Yes normal to inspection Palpation (GI): Soft to palpation, nontender and no guarding Back/Spine/Pelvis: Other: No C-spine, T-spine tenderness. Patient has mild tenderness to palpation along the lumbar midline spine pain, tenderness palpation along the left lumbar paraspinous muscles, with left lumbar paraspinous muscle spasm noted. DTRs 2+ bilaterally. Distal sensation circulation intact. Thoracic/Lumbar Spine: thoracic and lumbar spine normal to inspection Skin: General skin exam: no rashes or lesions noted Trauma: no lacerations or abrasions Wounds: no wounds Neuro: General: patient oriented x3 and moves all extremities Cranial nerves: Yes Equal, round and reactive pupils present Extrem: Other: Bilateral patellas with minimal tenderness to palpation along the anterior aspect. no pain with posterior anterior chest, no pain with peers history. Full range of motion bilateral knees General: Yes normal to inspection Right upper extremity: normal to inspection Left upper extremity: normal to inspection Right lower extremity: normal to inspection Left lower extremity: normal to inspection Course Reevaluation(s) Reevaluation #1: Lumbar spine x-rays return revealing straightening of lumbar lordosis may be seen in the setting of a muscle spasm. Symptoms consistent with a lumbar muscle spasm, will treat with anti-inflammatories and muscle relaxants. Patient given return precautions. Patient understands and agrees with plan. Patient stable for discharge. Time: 11:15 Medications Administered Discontinued Medications Generic Name Dose Route Start Last Admin Trade Name Freq PRN Reason Stop Dose Admin Ketorolac Tromethamine 30 mg 03/09/23 09:30 03/09/23 09:40 Ketorolac Tromethamine 30 Mg/Ml Vial IM 03/09/23 09:31 30 mg ONCE ONE Administration Medical Decision Making Medical Decision Making [facility] Narrative: 37-year-old male presenting to the emergency department with complaints of back pain since today. Patient states that he was lifting a box and felt his back spasm and he fell to his knees. On examination, patient mildly hypertensive at 175/90. Patient is asymptomatic, denies any headaches, dizziness, likely reactive due to pain. Patient has mild tenderness palpation along the lumbar midline spine. Left lumbar spasm noted with tenderness to palpation. DTRs are 2+. Mild tenderness along bilateral next deformities or swelling, x-rays not indicated at this time as patient is ambulatory and has minimal tenderness. Distal sensation circulation intact. No red flag back symptoms. Plan lumbar spine x-rays ordered Differential Diagnosis Differential Diagnoses: The differential diagnosis associated with the presentation includes Cauda equina syndrome-less likely, disc herniation, lumbar muscle spasm, strain, sciatica Admission/Observation Consideration of admission/observation: Escalation of care including admission/observation considered Lab Data [facility] Lab Attestation statement: I reviewed the patient's lab results. Radiology Impression Discussion of test interpretation with radiology: I have reviewed the radiologist's reading. Radiologist Impression: EXAMINATION: XR LUMBOSACRAL SPINE CLINICAL INFORMATION: Back pain. COMPARISON: None available. TECHNIQUE: Three views of the lumbosacral spine. FINDINGS: There are 5 nonrib-bearing lumbar vertebral bodies. Relative straightening of the lumbar lordosis. Vertebral body heights and intervertebral disc spaces are maintained. Sacroiliac joints are intact. XR/XR lumbar spine 2-3V IMPRESSION: Relative straightening of the lumbar lordosis may be seen in the setting of muscle spasm. Dictated By: Pham Norris MD Discharge Plan Discharge Clinical Impression: Lumbar paraspinal muscle spasm Patient Disposition: Home, Self-Care Instructions: Muscle Spasm (ED), Back Pain (ED) Additional Instructions: Your x-rays showed signs of a muscle spasm. Gentle stretching, massage, and hot compresses can help with your symptoms. Please take prescribed muscle relaxants as directed. Do not drink alcohol or drive while taking muscle relaxants as this may cause drowsiness. Take Tylenol and ibuprofen as prescribed for pain relief. If any new or worsening symptoms occur, including but not limited to numbness or tingling into your groin, urinary or bowel incontinence, or any other worsening symptoms, please return for re-evaluation. Tus radiograf?as mostraron signos de un espasmo muscular. Los estiramientos suaves, los masajes y las compresas calientes pueden ayudar con patricia s?ntomas. [place] los relajantes musculares recetados seg?n las indicaciones. No ana alcohol ni conduzca mientras franco relajantes musculares, ya que esto puede causar somnolencia. [place] Tylenol e ibuprofeno seg?n lo recetado para aliviar el dolor. Si se presentan s?ntomas nuevos o que empeoran, incluidos, entre otros, entumecimiento u hormigueo en la bella, incontinencia urinaria o intestinal, o cualquier otro s?ntoma que empeora, regrese para danny reevaluaci?n. Prescriptions: New ibuprofen 600 mg tablet 600 mg PO Q6H PRN (Reason: pain) Qty: 30 0RF acetaminophen [Tylenol] 325 mg capsule 650 mg PO Q6H PRN (Reason: pain) Qty: 30 0RF methocarbamol 1,000 mg tablet 1,000 mg PO TID Qty: 14 0RF No Action meclizine 25 mg tablet 25 mg PO TID PRN (Reason: dizziness) Qty: 20 0RF Stand Alone Forms: Work/School Release Interventions: ED Discharge Assessment Last Done: 03/09/23 11:54 Discharge Date/Time: 03/09/23 11:54
[2023-03-09] MEDS: Ketorolac Tromethamine 30 MG/ML VIAL IM (09:40)
[2023-03-09 11:51] VITALS: BP 115/60; PULSE 68; RESP 18; TEMP 37.1
== END 2023-03-09 11:54 | disposition home or self-care (01) ==
PROVIDERS: Emergency Provider Emergency Medicine
DX: M62.830 Muscle spasm of back (principal); M54.50 Low back pain, unspecified; G89.29 Other chronic pain; S39.92XA Unspecified injury of lower back, initial encounter; X50.0XXA Overexertion from strenuous movement or load, initial encounter; X50.9XXA Other and unspecified overexertion or strenuous movements or postures, initial encounter; Y93.9 Activity, unspecified; Y92.89 Other specified places as the place of occurrence of the external cause; Y99.9 Unspecified external cause status
CPT/HCPCS: 72100; 96372; 99283; 99284; J1885

== ENCOUNTER → 2023-03-25 13:04 | Outpatient (BNVA) | payer SELFPAY | PROVIDERS: Visit Provider Internal Medicine | DX: S39.012D Strain of muscle, fascia and tendon of lower back, subsequent encounter (principal); X50.0XXD Overexertion from strenuous movement or load, subsequent encounter | CPT/HCPCS: 99203 ==

== ENCOUNTER 2023-04-11 14:00 | Outpatient (RCR) | payer OTHER, SELFPAY ==
--- NOTE | 2023-04-04 16:26 | MHC.PT.EP ---
[facility] [place] Office [place] [facility] [place] Office [address] Tahir Hoskins [address] [phone] F: [phone] F: [phone] F: [phone] F: [phone] Physical Therapy Plan of Care Date of Evaluation: Date of Surgery: N/A Diagnosis: Lumbar strain Assessment: Pt is a pleasant 37yo M who presents to PT with low back pain after picking up a heavy box at work on 03/09/23. He presents to PT with current impairments in pain, decreased lumbar ROM, decreased hamstring length, soft tissue restrictions, decreased core stabilization, decreased hip/glute strength and impaired body mechanics. He is limited functionally by prolonged standing, prolonged sitting, getting in/out of bed, bending, and lifting. He is an excellent candidate for skilled PT in order to address current impairments to facilitate return to PLOF. He is recommended to be seen 2x/week for 4 weeks and will be reassessed at that time. Frequency and Duration: The patient will be seen 2x/week for 4 weeks Short Term Goals: Pt will be I with HEP to promote self management of symptoms Pt will demonstrate improvements in postural awareness and body mechanics throughout the day Long-Term Goals: Pt will achieve full, pain-free ROM all planes of lumbar spine Pt will demonstrate ability to squat and excelsior picker object from floor x 5 reps with proper mechanics and minimal to no discomfort Pt will demonstrate improvements in function as evidenced by statistically significant improvement in Modified Oswestry Low Back Pain Disability Index Questionnaire Treatment Plan: Modalities to reduce pain, spasms and effusion. Manual therapy to restore motion and function. Therapeutic exercise to improve strength and flexibility. Neuromuscular re-education for posture and balance. Therapeutic activities to return to functional activities of daily living. Electronically signed by: Vera Jackson, PT, DPT Please sign and return to therapist. Thank you for your referral.
--- NOTE | 2023-04-25 15:15 | MHC.PT.DC ---
[facility] [place] Office [place] Office [place] Office [address] Tahir Hoskins [address] [phone] F: [phone] F: [phone] F: [phone] F: [phone] Physical Therapy Discharge Report Diagnosis: Lumbar strain Date of Surgery: N/A Date of Evaluation: 04/04/23 Date of Discharge: 04/25/23 Treatments to Date: 3 Cancellations to Date: 1 No Shows to Date: 3 Discharge Status: Visit Non-compliance Discharge Summary: Pt was seen for PT from 04/05/23-04/11/23. He has had 3 no-show appointments since SOC. He is being D/C from skilled PT per [facility] attendance policy and visit non compliance. Pt current level of function unknown at this time. Electronically signed by: Vera Jackson, PT, DPT Please sign and return to therapist. Thank you for your referral.
== END 2023-04-25 15:15 | disposition home or self-care (01) ==
LOC: HO.PT 14:00
PROVIDERS: Visit Provider Physician Assistant
DX: S39.012D Strain of muscle, fascia and tendon of lower back, subsequent encounter (principal)
CPT/HCPCS: 97014; 97110; 97161

== ENCOUNTER 2023-05-12 09:58 | Emergency (ER) | payer MEDICAID, SELFPAY ==
[2023-05-12 10:01] VITALS: BP 117/80; PULSE 77; RESP 14; TEMP 36.7; O2SAT 97; BMI 30.4
--- NOTE | 2023-05-12 10:45 | PC.NURSE ---
Patient reports 7/10 left sided back and side pain . Pain started while moving furniture yesterday.
--- NOTE | 2023-05-12 10:49 | ED.GENADULT ---
HPI - General Adult General Chief complaint: Back Pain/Injury Stated complaint: back pain Time Seen by Provider: 05/12/23 10:48 Source: patient Limitations: language barrier History of Present Illness HPI narrative: 37-year-old male with mid back pain left-sided. Patient was interviewed and evaluated with television program director present. Patient states he was moving furniture in his room yesterday felt a pull in the left side of his back. Pain increases with range of motion and palpation. Pain is 7/10. Patient denies loss of bowel movements urine incontinence. Symptoms mild to moderate. Patient has had similar issues in the back. Patient states the pain does not radiate down his legs at this time. No other complaints at this time. Related Data Previous Rx's Medication Instructions Recorded meclizine 25 mg tablet 25 mg PO TID PRN dizziness #20 tabs 11/01/22 acetaminophen 325 mg capsule 650 mg PO Q6H PRN pain #30 caps 03/09/23 (Tylenol) ibuprofen 600 mg tablet 600 mg PO Q6H PRN pain #30 tabs 03/09/23 methocarbamol 1,000 mg tablet 1,000 mg PO TID #14 tabs 03/09/23 ibuprofen 600 mg tablet 600 mg PO TID PRN pain #20 tabs 05/12/23 methocarbamol 750 mg tablet 750 mg PO TID PRN muscle spasm #20 05/12/23 tabs Allergies Allergy/AdvReac Type Severity Reaction Status Date / Time SEAFOOD Allergy Unknown ANAPHYLAXIS Uncoded 11/01/22 08:02 Review of Systems Review of Systems: General: No fever, no chills ENT: No sore throat Cardiovascular: No chest pain Respiratory: No dyspnea Muscle skeletal: Positive left midback pain GI: no nausea vomiting, no diarrhea : No urinary symptoms Skin: No rash PMFSH Past Medical History Attestation statement: The following information was validated with the patient. Medical History No pertinent past medical history Social History Social History Alcohol intake: current Alcohol intake frequency: a few times a week Patient Tobacco Use Status: Never used Tobacco Smoked in Last 30 Days: Yes Use of substances other than those prescribed or required for medical reasons: No Advance Directives: No Advance Directives Information Provided: Yes Physical Exam ED Vital Signs: Vital Signs - 24 hr 05/12/23 10:01 Temperature 98.0 F Pulse Rate 77 Respiratory Rate 14 Blood Pressure 117/80 Pulse Oximetry 97 Oxygen Delivery Method Room Air BMI result Body Mass Index 30.4 General appearance: Awake, alert, cooperative, in no acute distress Skin: Warm, dry, no rash no ecchymosis erythema noted on the back Eyes: PERRL, EOMI, no icterus ENT: Oropharynx normal, uvula midline Neck: Soft supple full range of motion Pulmonary: Breath sounds clear to auscultation bilaterally, no accessory muscle use Cardiovascular: Regular rate and rhythm, no murmurs and rubs Extremities: Mid left paraspinal muscle tenderness no midline tenderness. Pain increases with range of motion Neuro: Alert oriented x3, no focal deficit, no footdrop noted Psych: Normal affect Course Course Course Narrative: Differential diagnosis: Mid back muscle strain Muscle spasm Degenerative disc disease Otherwise healthy 37-year-old male complaining of mid back strain after moving furniture in his room. Pain increases with range of motion or palpation. Symptoms mild to moderate. Pain 7/10. Patient denies any other complaints at this time will plan to discharge patient home on NSAIDs and Robaxin. Discharge Plan Discharge Clinical Impression: Mid back pain on left side Patient Disposition: Home, Self-Care Instructions: Muscle Strain (ED), Back Pain (ED) Additional Instructions: Your symptoms are consistent with muscle strain in the left mid back. At this time will be placing on NSAIDs and Robaxin for pain No heavy lifting ice is better than he had at this time Return if symptoms worsen Prescriptions: New ibuprofen 600 mg tablet 600 mg PO TID PRN (Reason: pain) Qty: 20 0RF methocarbamol 750 mg tablet 750 mg PO TID PRN (Reason: muscle spasm) Qty: 20 0RF No Action meclizine 25 mg tablet 25 mg PO TID PRN (Reason: dizziness) Qty: 20 0RF ibuprofen 600 mg tablet 600 mg PO Q6H PRN (Reason: pain) Qty: 30 0RF acetaminophen [Tylenol] 325 mg capsule 650 mg PO Q6H PRN (Reason: pain) Qty: 30 0RF methocarbamol 1,000 mg tablet 1,000 mg PO TID Qty: 14 0RF Stand Alone Forms: Work/School Release Print Language: [place]
--- NOTE | 2023-05-12 11:06 | PC.NURSE ---
Discharge plan reviewed with patient who verbalized understanding
== END 2023-05-12 11:06 | disposition home or self-care (01) ==
PROVIDERS: Emergency Provider Emergency Medicine
DX: M54.6 Pain in thoracic spine (principal)
CPT/HCPCS: 99283; 99284

== ENCOUNTER 2023-06-21 07:32 | Emergency (ER) | payer MEDICAID, SELFPAY ==
[2023-06-21 07:51] VITALS: BP 123/81; PULSE 74; RESP 16; TEMP 36.8; O2SAT 98; BMI 27.5
--- NOTE | 2023-06-21 08:16 | ED.GENADULT ---
HPI - General Adult General Chief complaint: Headache Stated complaint: headache Time Seen by Provider: 06/21/23 07:59 Source: patient Mode of arrival: ambulatory Limitations: no limitations History of Present Illness HPI narrative: 37 year old male w/o significant pmhx presents w/ fatigue, malaise, myaglias, chills, dry cough and diffuse frontal headache (w/o vision changes and dizziness) X2 days. He comes in requesting a covid test as his at home is sick w/ covid. Denies cp, sob, nausea, vomiting, abd pain, vision changes, dizziness, weakness. Related Data Previous Rx's Medication Instructions Recorded meclizine 25 mg tablet 25 mg PO TID PRN dizziness #20 tabs 11/01/22 acetaminophen 325 mg capsule 650 mg (2 x 325 mg) PO Q6H PRN 03/09/23 (Tylenol) pain #30 caps ibuprofen 600 mg tablet 600 mg PO Q6H PRN pain #30 tabs 03/09/23 methocarbamol 1,000 mg tablet 1,000 mg PO TID #14 tabs 03/09/23 ibuprofen 600 mg tablet 600 mg PO TID PRN pain #20 tabs 05/12/23 methocarbamol 750 mg tablet 750 mg PO TID PRN muscle spasm #20 05/12/23 tabs Allergies Allergy/AdvReac Type Severity Reaction Status Date / Time SEAFOOD Allergy Unknown ANAPHYLAXIS Uncoded 11/01/22 08:02 Review of Systems Review of Systems: Constitutional : No Weight loss, No Fever, + Chills, + Fatigue, + Malaise ENT/Mouth : No sore throat, No Rhinorrhea Eyes: No Eye Pain, No Swelling, No Redness Cardiovascular : No Chest Pain, No SOB, No Dyspnea on Exertion, No Orthopnea, No Edema, No Palpitations Respiratory : No Cough, No Sputum, No Wheezing Gastrointestinal : No Nausea, No Vomiting, No Diarrhea, No Constipation, No abdominal Pain, No Hematochezia, No Melena Genitourinary : No Dysuria, No Urinary Frequency, No Hematuria, Musculoskeletal : No joint pain, No Myalgias, No Joint Swelling Skin : No Skin Lesions, No rash Neuro : No Weakness, No Numbness, No Dizziness, + Headache Psych : No Anxiety/Panic, No Depression All other systems reviewed and are negative Yes all other systems are reviewed and are negative PMFSH Past Medical History Attestation statement: The following information was validated with the patient. Source: old records reviewed and nursing notes reviewed Medical History No pertinent past medical history Social History Social History Alcohol intake: current Alcohol intake frequency: a few times a week Patient Tobacco Use Status: Never used Tobacco Advance Directives: No Advance Directives Information Provided: No Physical Exam ED Vital Signs: Vital Signs - 24 hr 06/21/23 07:51 Temperature 98.2 F Pulse Rate 74 Respiratory Rate 16 Blood Pressure 123/81 Pulse Oximetry 98 Oxygen Delivery Method Room Air BMI result Body Mass Index 27.5 vss Appearance: Alert.? Oriented X3.? No acute distress.? Head: Normocephalic, atraumatic, no step-offs or deformities Eyes: Pupils equal, round and reactive to light.? ENT: Pharynx normal.? Neck: Normal inspection.? Neck supple.? CVS: Normal heart rate and rhythm.? Pulses normal.? Respiratory: No respiratory distress.? Breath sounds normal.? Abdomen: Soft and nontender.? Skin: Skin warm and dry.? Normal skin color.? Normal skin turgor.? Extremities: No lower extremity edema.? No calf ttp. 5/5 strength to bilateral upper and lower extremities Neuro: Oriented X 3.? No motor deficit.? No sensory deficit. CN 2-12 intact. normal [id number], [id number], steady tandem gait normal coordination. Negative Romberg and pronator drift Course Reevaluation(s) Reevaluation #1: COVID Negative. Neuro exam remains nonfocal. This is likely viral illness. I did send a flu / COVID/ RSV which is currently pending. Will call the results are positive. High suspicion for COVID is patient's is currently positive. Educated patient on diagnosis and treatment plan, answered all question, patient verbalizes understanding. At this time patient will be discharged home, advised to return with new or worsening symptoms. Educated on worrisome signs and symptoms and when to return. At this time I feel comfortable discharge home. Time: 09:35 Medications Administered Discontinued Medications Generic Name Dose Route Start Last Admin Trade Name Freq PRN Reason Stop Dose Admin Acetaminophen 650 mg 06/21/23 08:24 06/21/23 08:39 Acetaminophen 325 Mg Tablet PO 06/21/23 08:25 650 mg ONCE ONE Administration Medical Decision Making Medical Decision Making [facility] Narrative: 08 37 year old male presents with fatigue, malaise, does, headache, dry cough for the past day. at home sick with COVID physical exam benign history and physical exam concerning for viral illness versus COVID-19 versus influenza. Unlikely pulmonary embolism, ACS, pneumonia, no signs of acute respiratory distress. Unlikely stroke, posterior stroke, intracranial hemorrhage, dissection. Plan at this time COVID test. Differential Diagnosis Differential Diagnoses: The differential diagnosis associated with the presentation includes history and physical exam concerning for viral illness versus COVID-19 versus influenza. Unlikely pulmonary embolism, ACS, pneumonia, no signs of acute respiratory distress.Unlikely stroke, posterior stroke, intracranial hemorrhage, dissection. Admission/Observation Consideration of admission/observation: Escalation of care including admission/observation considered unlikely Lab Data [facility] Lab Attestation statement: I reviewed the patient's lab results. Labs: Lab Results 06/21/23 Range/Units 08:09 COVID-19 (RICARDO) Negative (Negative) COVID-19 Clin Com See Note Tests considered The following testing was considered but not selected: No head trauma, neuro nonfocal,no indication for head ct. No red flag sx of headaches Chronic Conditions Patient?s care impacted by: Other ([facility] PMHX ) Critical Care Time Critical Care Time Critical Care Time: No Discharge Plan Discharge Clinical Impression: Viral illness Patient Disposition: Home, Self-Care Instructions: Viral Syndrome (ED) Additional Instructions: Take your medications as prescribed. If you were prescribed antibiotics today, it is important that you take your medication to their entirety, do not skip any doses, do not finish them early. Follow-up with your primary care provider this week. Return to the emergency department with new or worsening symptoms. Such as fevers, chills, chest pain, shortness of breath, nausea, vomiting, dizziness, headache, vision changes, lethargy In case of emergency call 911 Prescriptions: No Action meclizine 25 mg tablet 25 mg PO TID PRN (Reason: dizziness) Qty: 20 0RF ibuprofen 600 mg tablet 600 mg PO Q6H PRN (Reason: pain) Qty: 30 0RF acetaminophen [Tylenol] 325 mg capsule 650 mg PO Q6H PRN (Reason: pain) Qty: 30 0RF methocarbamol 1,000 mg tablet 1,000 mg PO TID Qty: 14 0RF ibuprofen 600 mg tablet 600 mg PO TID PRN (Reason: pain) Qty: 20 0RF methocarbamol 750 mg tablet 750 mg PO TID PRN (Reason: muscle spasm) Qty: 20 0RF Referrals: Physician,Unknown J [Primary Care Provider] - 2 days Stand Alone Forms: Work/School Release
== END 2023-06-21 09:48 | disposition home or self-care (01) ==
PROVIDERS: Emergency Provider Student in an Organized Health Care Education/Training Program
DX: B34.9 Viral infection, unspecified (principal); R51.9 Headache, unspecified; M79.10 Myalgia, unspecified site; R05.9 Cough, unspecified; R42 Dizziness and giddiness; Z20.822 Contact with and (suspected) exposure to COVID-19; Z20.828 Contact with and (suspected) exposure to other viral communicable diseases; Z79.899 Other long term (current) drug therapy
CPT/HCPCS: 0241U; 87502; 87635; 99283

== ENCOUNTER 2023-08-04 14:15 | Emergency (ER) | payer MEDICAID, SELFPAY ==
[2023-08-04 14:17] VITALS: BP 124/83; PULSE 93; RESP 22; TEMP 36.2; O2SAT 98; BMI 29.5
[2023-08-04] MEDS: hydrOXYzine HCL 50 MG TABLET PO (15:03)
--- NOTE | 2023-08-04 15:50 | ED_ITS ---
HPI - General Adult General Chief complaint: Behavioral Concerns Stated complaint: Panic attack Time Seen by Provider: 08/04/23 14:33 Source: patient Limitations: no limitations History of Present Illness HPI narrative: 37-year-old male history of anxiety since presents to ED for anxiety exacerbation. Patient states he has been without his fluoxetine for while and has had increasing anxiety attacks. Patient had anxiety today during Thanksgiving dinner. Patient felt extremely nervous, heart ratcing and had impending doom situation with numbness/ tingling in extremities. Patient presently denies any heart racing, any chest pain, or shortness of breath in the ED. Patient states just feeling anxious. Patient states he would like to speak to to see psychiatrist or therapist. patient denies any drug use or alcohol use. patient denies any suicidal homicidal ideation. Patient states he has been seen by his primary care provider has been evaluated for the anxiety. Patient denies any leg swelling, calf pain, coughing up blood, fever, chills, or pleurisy. Patient denies any recent long travel recent surgery. Related Data Previous Rx's Medication Instructions Recorded meclizine 25 mg tablet 25 mg PO TID PRN dizziness #20 tabs 11/01/22 acetaminophen 325 mg capsule 650 mg (2 x 325 mg) PO Q6H PRN 03/09/23 (Tylenol) pain #30 caps ibuprofen 600 mg tablet 600 mg PO Q6H PRN pain #30 tabs 03/09/23 methocarbamol 1,000 mg tablet 1,000 mg PO TID #14 tabs 03/09/23 ibuprofen 600 mg tablet 600 mg PO TID PRN pain #20 tabs 05/12/23 methocarbamol 750 mg tablet 750 mg PO TID PRN muscle spasm #20 05/12/23 tabs hydroxyzine HCl 50 mg tablet 50 mg PO QID PRN anxiety 7 days 08/04/23 #28 tabs Allergies Allergy/AdvReac Type Severity Reaction Status Date / Time SEAFOOD Allergy Unknown ANAPHYLAXIS Uncoded 08/04/23 14:24 Review of Systems Review of Systems: Anxiety Yes all other systems are reviewed and are negative REPLACED BY [facility] Past Medical History Medical History No pertinent past medical history Social History Alcohol intake: current Alcohol intake frequency: a few times a week Patient Tobacco Use Status: Never used Tobacco Advance Directives: No Advance Directives Information Provided: No Physical Exam ED Vital Signs: Vital Signs - 24 hr 08/04/23 14:17 Temperature 97.1 F Pulse Rate 93 Respiratory Rate 22 H Blood Pressure 124/83 Pulse Oximetry 98 Oxygen Delivery Method Room Air BMI result Body Mass Index 29.5 Const General: cooperative, healthy appearing, comfortable, no acute distress, well developed, alert, awake and Physically active Orientation/consciousness: oriented to person, oriented to place, oriented to time and patient oriented x3 HENFL Head: Yes normal to inspection, Yes No palpable skull fracture present, Yes normocephalic and Yes atraumatic Eyes General: appearance normal, both eyes and all related structures Neck Neck: Yes normal visual inspection, Yes full ROM, Yes no lymphadenopathy, Yes no meningeal signs, Yes trachea midline, Yes supple, No anterior neck swelling and No tender Chest Chest palpation & inspection: normal inspection of the chest and normal palpation of entire chest wall Resp Effort & Inspection: normal respiratory effort and able to speak in complete sentences Auscultation: clear to auscultation bilaterally Cardio Jugular venous distension: no JVD Heart sounds: S1 normal heart sound present and S2 normal heart sound present GI Inspection: Yes normal to inspection Palpation (GI): Soft to palpation, not firm, nontender, no guarding and not rigid General: No CVA tenderness and Yes no CVA tenderness Back/Spine/Pelvis Back: no CVA tenderness, No CVA tenderness and No back tenderness Skin General skin exam: no rashes or lesions noted, elasticity normal and turgor normal Neuro General: oriented to person, oriented to place, oriented to time, patient oriented x3, gait normal, tone normal, moves all extremities, Normal light touch and pain sensation, no meningeal signs, no focal motor deficits, CN's II-XI intact bilaterally and normal sensation to monofilament Extrem Other: Bilateral lower extremity negative for swelling, pitting edema, or calf tenderness. General: Yes normal to inspection and Yes full ROM Psych Other: Anxious Appearance: grossly normal and well kempt Medications Administered Discontinued Medications Generic Name Dose Route Start Last Admin Trade Name Freq PRN Reason Stop Dose Admin Hydroxyzine HCl 50 mg 08/04/23 14:58 08/04/23 15:03 Hydroxyzine Hcl 50 Mg Tablet PO 08/04/23 14:59 50 mg ONCE ONE Administration Medical Decision Making Medical Decision Making MDM Narrative: 37-year-old male with history of anxiety presents to the ED for anxiety/ panic attack while having Thanksgiving dinner. Patient states he has been without fluoxetine for a long time. Patient denies any suicidal homicidal ideation. Patient states feelings more stress lately. Patient presently denies any chest pain, shortness of breath, any palpitations/ heart racing presently in the ED. Patient evaluated by care team consulted who provided patient with information for referral to therapist and psychiatrist. Patient will be follow-up with [facility] tomorrow for appointment. Not suspecting myocardial infarction, PE, pneumoni, CHF, myocarditits, pericardial effusion, cardiac tamponade, or thyroid disorder. No need for EKG or workup. Patient feels less nervous after being given ataarax. Differential Diagnosis Differential Diagnoses: The differential diagnosis associated with the presentation includes ( Anxiety. Panic attack, suicidal homicidal, depression) Admission/Observation Consideration of admission/observation: Escalation of care including admission/observation considered Consult Healthcare Provider Management of the patient was discussed with: Resident Services Manager (Care TEam store consultant) Radiology Impression Discussion of test interpretation with radiology: I have reviewed the radiologist's reading. External Record Review External record reviewed: Other ([facility] visits) Discharge Plan Discharge Clinical Impression: Acute anxiety, Panic attack Patient Disposition: Home, Self-Care Instructions: Anxiety (ED), Panic Attack (ED) Additional Instructions: please follow-up with your primary care provider. Please follow-up with the psychiatrist and therapist referred to see tomorrow. Return to the ED immediately for any suicidal / homicidal ideation, chest pain, shortness of breath, leg swelling, calf pain, coughing up blood, chest pain on inspiration, auditory/visual hallucinations, or any other concerning symptoms. laura un seguimiento con saunders proveedor de atenci?n primaria. Por favor laura un seguimiento con el psiquiatra y terapeuta remitido para debi ma?lee. Regrese al servicio de urgencias de inmediato si tiene alguna idea suicida/homicidio, dolor en el pecho, dificultad para respirar, hinchaz?n de las piernas, dolor en la pantorrilla, tos con desean, dolor en el pecho al inspirar, alucinaciones auditivas/visuales o cualquier otro s?ntoma preocupante. Prescriptions: New hydroxyzine HCl 50 mg tablet 50 mg PO QID PRN (Reason: anxiety) 7 Days Qty: 28 0RF No Action meclizine 25 mg tablet 25 mg PO TID PRN (Reason: dizziness) Qty: 20 0RF ibuprofen 600 mg tablet 600 mg PO Q6H PRN (Reason: pain) Qty: 30 0RF acetaminophen [Tylenol] 325 mg capsule 650 mg PO Q6H PRN (Reason: pain) Qty: 30 0RF methocarbamol 1,000 mg tablet 1,000 mg PO TID Qty: 14 0RF ibuprofen 600 mg tablet 600 mg PO TID PRN (Reason: pain) Qty: 20 0RF methocarbamol 750 mg tablet 750 mg PO TID PRN (Reason: muscle spasm) Qty: 20 0RF Stand Alone Forms: Work/School Release Discharge Date/Time: 08/04/23 16:21 Print Language: Latvian
--- NOTE | 2023-08-04 16:02 | MHC.CARE ---
CARE Team met with pt at the request of URSZULA Salcido. Pt presents with an increase in anxiety and reports sx's of panic attack. Pt denies SI/HI. He does not have a therapist or psychiatrist. He was provided with [facility] phone number and advised to call tomorrow so he can present to the walk in hours and obtain providers. Pt reports feeling safe. Was given hydroxyzine by provider to take home. Pt is aware tahat he can contact the CARE Team for additional questions and was provided with resources.
== END 2023-08-04 16:21 | disposition home or self-care (01) ==
PROVIDERS: Emergency Provider Emergency Medicine; PCP Physician Assistant
DX: F41.9 Anxiety disorder, unspecified (principal); F41.0 Panic disorder [episodic paroxysmal anxiety]
CPT/HCPCS: 99282; 99283

== ENCOUNTER 2023-10-13 08:05 | Emergency (ER) | payer MEDICAID, SELFPAY ==
[2023-10-13 08:07] VITALS: BP 132/86; PULSE 69; RESP 16; TEMP 36.1; O2SAT 100; BMI 31.0
--- NOTE | 2023-10-13 10:03 | ED_ITS ---
HPI - Skin/Abscess/Foreign Bdy General Chief complaint: Skin/Abscess/Foreign Body Stated complaint: Cyst left leg Time Seen by Provider: 10/13/23 09:06 Source: patient, RN notes reviewed and old records reviewed Mode of arrival: ambulatory History of Present Illness HPI narrative: 38-year-old male no significant past medical history presenting to the ED complaining of painful cyst to left upper thigh x 3 days. States tried to drain himself at home. Denies fever/chills, active drainage Related Data Previous Rx's Medication Instructions Recorded meclizine 25 mg tablet 25 mg PO TID PRN dizziness #20 tabs 11/01/22 acetaminophen 325 mg capsule 650 mg (2 x 325 mg) PO Q6H PRN 03/09/23 (Tylenol) pain #30 caps ibuprofen 600 mg tablet 600 mg PO Q6H PRN pain #30 tabs 03/09/23 methocarbamol 1,000 mg tablet 1,000 mg PO TID #14 tabs 03/09/23 ibuprofen 600 mg tablet 600 mg PO TID PRN pain #20 tabs 05/12/23 methocarbamol 750 mg tablet 750 mg PO TID PRN muscle spasm #20 05/12/23 tabs hydroxyzine HCl 50 mg tablet 50 mg PO QID PRN anxiety 7 days 08/04/23 #28 tabs cephalexin 500 mg capsule 500 mg PO QID 7 days #28 caps 10/13/23 doxycycline hyclate 100 mg tablet 100 mg PO BID 7 days #14 tabs 10/13/23 Allergies Allergy/AdvReac Type Severity Reaction Status Date / Time SEAFOOD Allergy Unknown ANAPHYLAXIS Uncoded 08/04/23 14:24 Review of Systems Review of Systems: Constitutional: No Fever, No Chills Cardiovascular: No Chest Pain, No SOB Respiratory: No Cough, No Sputum, No Wheezing Gastrointestinal: No Nausea, No Vomiting,No Abdominal pain Genitourinary: No Dysuria, No Urinary Frequency, No Hematuria, Musculoskeletal: No joint pain, No Myalgias, No Joint Swelling Skin: + Skin Lesions, No rash Neuro: No Weakness Yes all other systems are reviewed and are negative Constitutional: Constitutional: Reports as per [facility] Past Medical History Attestation statement: The following information was validated with the patient. Source: old records reviewed Medical History No pertinent past medical history Social History Social History Alcohol intake: current Alcohol intake frequency: a few times a week Patient Tobacco Use Status: Never used Tobacco Advance Directives: No Physical Exam Vital Signs: Vital Signs: Last Vital Signs Temp 98.8 F 10/13/23 10:21 Pulse 83 10/13/23 10:21 Resp 18 10/13/23 10:21 BP 134/87 10/13/23 10:21 Pulse Ox 100 10/13/23 10:21 O2 Del Method Room Air 10/13/23 10:21 BMI result Body Mass Index 31.0 Const: General: cooperative, healthy appearing and no acute distress Orientation/consciousness: patient oriented x3 Limitations: no limitations HEENT: Head: Yes normal to inspection and Yes atraumatic Ears: hearing grossly normal bilaterally General nose exam: Normal external nose present Face and sinus: Yes normal facial exam Eyes: General: appearance normal, both eyes and all related structures EOM: EOMs intact bilaterally Neck: Neck: Yes normal visual inspection and Yes no meningeal signs Resp: Effort & Inspection: normal respiratory effort and no respiratory distress Cardio: Rate: regular rate Skin: Other: +indurated erythematous abscess/infected hair follicle to L upper thigh. +small central pointing without appreciable fluctuance. No active drainage Rashes: no rashes Neuro: General: patient oriented x3, tone normal and no meningeal signs Cranial nerves: Yes CN's II-XII intact bilaterally Gait exam (Neuro): Normal gait present Extrem: General: Yes normal to inspection Medical Decision Making Medical Decision Making MDM Narrative: 38-year-old male no significant past medical history presenting to the ED complaining of painful cyst to left upper thigh x 3 days. On exam vital signs stable, NAD, nontoxic appearing physical exam as noted above. Area open with 18 gauge with small amount of pus/bloody drainage. Dressing applied. Discussed with patient p.o. antibiotics and needed warm compresses at home Please refer to course for remaining clinical decision making, interpretation of labs/imaging results, and discussions with consultants and/or family members. Results discussed with patient including worrisome signs and symptoms and strict return precautions, and when to return to the emergency department. They verbalized understanding and feel safe for discharge at this time. Differential Diagnosis Differential Diagnoses: The differential diagnosis associated with the presen tation includes As above External Record Review External record reviewed: Inpatient record, Office record, Outpatient record, P rior outpatient labs, Prior outpatient radiology, Primary care record and Outside ED record Tests considered The following testing was considered but not selected: As above Prescription Management I considered prescription management with: Antibiotic Discharge Plan Discharge Clinical Impression: Abscess of skin or subcutaneous tissue Patient Disposition: Home, Self-Care Instructions: Abscess (ED) Additional Instructions: Doxy and Keflex antibiotics please take as prescribed Apply warm compresses If area worsens, becomes more red, larger or has pus drainage return to the ED Antibi?ticos Doxy y Keflex, t?melos seg?n lo prescrito. Aplicar compresas tibias Si el ?chance empeora, se vuelve m?s chandana, m?s ricky o tiene drenaje de pus, regrese al servicio de urgencias. Prescriptions: New cephalexin 500 mg capsule 500 mg PO QID 7 Days Qty: 28 0RF doxycycline hyclate 100 mg tablet 100 mg PO BID 7 Days Qty: 14 0RF No Action meclizine 25 mg tablet 25 mg PO TID PRN (Reason: dizziness) Qty: 20 0RF ibuprofen 600 mg tablet 600 mg PO Q6H PRN (Reason: pain) Qty: 30 0RF acetaminophen [Tylenol] 325 mg capsule 650 mg PO Q6H PRN (Reason: pain) Qty: 30 0RF methocarbamol 1,000 mg tablet 1,000 mg PO TID Qty: 14 0RF ibuprofen 600 mg tablet 600 mg PO TID PRN (Reason: pain) Qty: 20 0RF methocarbamol 750 mg tablet 750 mg PO TID PRN (Reason: muscle spasm) Qty: 20 0RF hydroxyzine HCl 50 mg tablet 50 mg PO QID PRN (Reason: anxiety) 7 Days Qty: 28 0RF Referrals: Yoli Gordon PA-C [Primary Care Provider] - Stand Alone Forms: Work/School Release Interventions: ED Discharge Assessment Last Done: 10/13/23 10:21 Discharge Date/Time: 10/13/23 10:22 Print Language: Hong Konger
[2023-10-13 10:21] VITALS: BP 134/87; PULSE 83; RESP 18; TEMP 37.1; O2SAT 100
== END 2023-10-13 10:22 | disposition home or self-care (01) ==
PROVIDERS: Emergency Provider Emergency Medicine; PCP Physician Assistant
DX: L02.416 Cutaneous abscess of left lower limb (principal); M79.652 Pain in left thigh
CPT/HCPCS: 10160; 99283; 99284

== ENCOUNTER 2023-12-23 08:48 | Emergency (ER) | payer SELFPAY ==
[2023-12-23 08:58] VITALS: BP 127/76; PULSE 80; RESP 18; TEMP 36.6; O2SAT 95; BMI 31.9
--- NOTE | 2023-12-23 09:46 | ED_ITS ---
HPI - URI/Sore Throat General Chief Complaint: Upper Respiratory Symptoms Stated Complaint: sore throat, fever Time Seen by Provider: 12/23/23 09:06 Source: patient Mode of arrival: ambulatory Limitations: no limitations History of Present Illness HPI Narrative: 38 yo male presents to the ER for evaluation of sore throat for the last 2-3 days. He is here with his teenage daughter who also has a sore throat. He r eports he had a subjective fever and headache yesterday that improved with [id number] Tylenol. He is able to eat and drink normally although it does hurt when he swallows. He denies any swollen lymph nodes, chest pain, shortness for breath. He has a slight cough. MD elicited complaint: sore throat Onset (ago): day(s) Consistency: constant Severity: moderate Description of mucous: clear Able to tolerate fluids by mouth: Yes Exacerbating factors: swallowing Relieving factors: NSAID and OTC cold medicine Context: sick contacts Associated symptoms: fever, nasal congestion, sore throat and cough Treatments prior to arrival: none Related Data Previous Rx's ?Medication ?Instructions ?Recorded meclizine 25 mg tablet 25 mg PO TID PRN dizziness #20 tabs 11/01/22 acetaminophen 325 mg capsule 650 mg (2 x 325 mg) PO Q6H PRN 03/09/23 (Tylenol) pain #30 caps ibuprofen 600 mg tablet 600 mg PO Q6H PRN pain #30 tabs 03/09/23 methocarbamol 1,000 mg tablet 1,000 mg PO TID #14 tabs 03/09/23 ibuprofen 600 mg tablet 600 mg PO TID PRN pain #20 tabs 05/12/23 methocarbamol 750 mg tablet 750 mg PO TID PRN muscle spasm #20 05/12/23 tabs hydroxyzine HCl 50 mg tablet 50 mg PO QID PRN anxiety 7 days 08/04/23 #28 tabs cephalexin 500 mg capsule 500 mg PO QID 7 days #28 caps 10/13/23 doxycycline hyclate 100 mg tablet 100 mg PO BID 7 days #14 tabs 10/13/23 Allergies Allergy/AdvReac Type Severity Reaction Status Date / Time SEAFOOD Allergy Unknown ANAPHYLAXIS Uncoded 12/23/23 09:05 Review of Systems Review of Systems: Yes all other systems are reviewed and are negative PMFSH Past Medical History Medical History No pertinent past medical history Social History Social History Alcohol intake: current Alcohol intake frequency: a few times a week Patient Tobacco Use Status: Never used Tobacco Smoked in Last 30 Days: No Use of substances other than those prescribed or required for medical reasons: No Advance Directives: No Advance Directives Information Provided: No Physical Exam Vital Signs: Vital Signs: Last Vital Signs Temp 97.8 F 12/23/23 08:58 Pulse 80 12/23/23 08:58 Resp 18 12/23/23 08:58 BP 127/76 12/23/23 08:58 Pulse Ox 95 12/23/23 08:58 O2 Del Method Room Air 12/23/23 08:58 BMI result Body Mass Index 31.9 Appearance: Alert. Oriented X3. No acute distress. Head: normocephalic, atraumatic. Eyes: Pupils equal, round and reactive to light. ENT: Pharynx with moist mucus membranes, mild posterior erythema, generalized. No tonsillar swelling or exudate. Neck: Normal inspection. Neck supple. CVS: Normal heart rate and rhythm. Pulses normal. Respiratory: No respiratory distress. Breath sounds normal. Skin: Skin warm and dry. Normal skin color. Normal skin turgor. No rashes. Extremities: No lower extremity edema. No joint swelling. Neuro/psych: Oriented X 3. Nonfocal. CN II-XII intact. Normal speech and cognition. Medical Decision Making Medical Decision Making MDM Narrative: 38-year-old male presents to the ER for evaluation of 2-3 days of sore throat along with subjective fever and headache. Positive sick contacts with his 15-year-old daughter who is also being seen here today. His exam is reassuring with some mild posterior pharyngeal erythema without any tonsillar swelling or exudate, no uvular deviation or unilateral swelling to suggest abscess. He is tolerating p.o.. He is handling secretions normally and is nontoxic appearing. His vital signs are stable. Viral studies today show he is negative for COVID and flu. He is also negative for strep throat. Most likely other viral process. Discussed symptomatic management as well as return precautions. He is stable for discharge home. Differential Diagnosis Differential Diagnoses: The differential diagnosis associated with the presentation includes strep, covid, flu, rsv, other viral syndrome, bronchitis, pneumonia, no evidence of peritonsillar abcsess or retropharyngeal abscess Lab Data MDM Lab Attestation statement: I reviewed the patient's lab results. Labs: Lab Results 12/23/23 Range/Units 09:36 COVID-19 (RICARDO) Negative (Negative) COVID-19 Clin Com See Note Influenza Type A (JUNAID) Negative (Negative) Influenza Type B (JUNAID) Negative (Negative) Influenza A & B Note See Note S. pyogenes GrpA JUNAID Negative (Negative) Independent Historian Clinical information obtained from an independent historian. History obtained from or confirmed by: Other ( Teenage daughter who helps provide history) External Record Review External record reviewed: Prior outpatient labs Tests considered The following testing was considered but not selected: chest x-ray was considered for reports of mild cough over his lungs are clear and he is saturating well, doubt pneumonia Prescription Management I considered prescription management with: Pain Medication and Antibiotic Critical Care Time Critical Care Time Critical Care Time: No Discharge Plan Discharge Clinical Impression: Pharyngitis Qualifiers: Pharyngitis/tonsillitis etiology: unspecified etiology Qualified Code(s): J02.9 - Acute pharyngitis, unspecified Patient Disposition: Home, Self-Care Instructions: Pharyngitis (ED) Additional Instructions: You tested negative for Strep throat, COVID and Flu Your sore throat is most likely due to another viral process. Treatment is supportive care. Take Motrin and Tylenol as needed for pain. Use warm salt water gargles 3 times per day. Recommend [id number] Chloraseptic spray or Cepacol lozenges to help numb the back of your throat rest and drink plenty of fluids. Follow-up with your doctor as needed. If you develop new or worsening symptoms call 911 or come back to the ER for further evaluation. Prescriptions: No Action meclizine 25 mg tablet 25 mg PO TID PRN (Reason: dizziness) Qty: 20 0RF ibuprofen 600 mg tablet 600 mg PO Q6H PRN (Reason: pain) Qty: 30 0RF acetaminophen [Tylenol] 325 mg capsule 650 mg PO Q6H PRN (Reason: pain) Qty: 30 0RF methocarbamol 1,000 mg tablet 1,000 mg PO TID Qty: 14 0RF ibuprofen 600 mg tablet 600 mg PO TID PRN (Reason: pain) Qty: 20 0RF methocarbamol 750 mg tablet 750 mg PO TID PRN (Reason: muscle spasm) Qty: 20 0RF hydroxyzine HCl 50 mg tablet 50 mg PO QID PRN (Reason: anxiety) 7 Days Qty: 28 0RF cephalexin 500 mg capsule 500 mg PO QID 7 Days Qty: 28 0RF doxycycline hyclate 100 mg tablet 100 mg PO BID 7 Days Qty: 14 0RF Stand Alone Forms: Work/School Release Print Language: Japanese
[2023-12-23 09:52] LABS: IDNOW Serial# 08D9AD1C; Strep A Nucleic Acid Negative (Negative)
[2023-12-23 09:55] LABS: COVID-19 Test Negative (Negative); IDNOW Serial# 9DB6401D
[2023-12-23 09:57] LABS: IDNOW Serial# 152EDE1D; Influenza A Negative (Negative); Influenza B2 Negative (Negative)
[2023-12-23 12:38] VITALS: BP 127/76; PULSE 80; RESP 18; TEMP 36.6; O2SAT 95
== END 2023-12-23 12:39 | disposition home or self-care (01) ==
PROVIDERS: Physician Assistant; Emergency Provider Emergency Medicine Emergency Medical Services
DX: J02.9 Acute pharyngitis, unspecified (principal); Z11.52 Encounter for screening for COVID-19
CPT/HCPCS: 87502; 87635; 87651; 99283; 99284

== ENCOUNTER 2024-03-08 07:35 | Emergency (ER) | payer MEDICAID, SELFPAY ==
--- NOTE | ~2024-03-08 | XR_ITS ---
EXAMINATION: XR CHEST CLINICAL INFORMATION: Bradycardia COMPARISON: 09/30/2021 TECHNIQUE: Frontal view of the chest was obtained. FINDINGS: Lungs are mildly hypoinflated with some minimal basilar atelectasis. Allowing for this, no significant abnormality is noted involving the heart, lungs, mediastinum, bony thorax or soft tissues. XR/XR chest 1V IMPRESSION: No acute intrathoracic disease.
--- NOTE | 2024-03-08 07:38 | ECG_ITS ---
Test Reason : chest pain Blood Pressure : / mmHG Vent. Rate : 081 BPM Atrial Rate : 081 BPM P-R Int : 158 ms QRS Dur : 094 ms QT Int : 358 ms P-R-T Axes : 034 -21 024 degrees QTc Int : 415 ms Normal sinus rhythm Normal ECG When compared with ECG of 12-FEB-2020 11:50, No significant change was found Referred By: Generic ED Physician Electronically Signed By:LAYO YOON MD
[2024-03-08 07:49] VITALS: BP 102/69; PULSE 78; RESP 17; TEMP 36.6; O2SAT 98; BMI 29.5
--- NOTE | 2024-03-08 08:04 | ED.CHESTPAIN ---
HPI - Chest Pain General Chief Complaint: Chest Pain Stated Complaint: chest pain Time Seen by Provider: 03/08/24 08:04 Source: patient and case manager specialist (all interactions with this patient were facilitated with an [facility] director of oncology) Mode of arrival: ambulatory Limitations: language barrier (all interactions with this patient were facilitated with an [facility] director of oncology) History of Present Illness ED Provider: Alma Melton PA-C HPI narrative: Patient is a 38 year old assigned male at with no reported medical history presenting to the emergency department today with chest pain. Patient states that he started having chest pain this morning white at work. Patient states that the pain was over his right pectoral muscle. Patient denies any dizziness, lightheadedness, abdominal pain, nausea, vomiting, fever, chills, blurry vision, double vision, loss of vision, difficulty breathing, shortness of breath, back pain, night sweats, pain with urination, increased urinary frequency, increased urinary urgency, blood in his urine or stool, syncope or a near syncopal episode, recent trauma or falls, bowel incontinence, bladder incontinence, or any other complaints at this time. MD complaint: chest pain Pain location: right chest Pain radiation: none Severity: mild Relieving factors: nothing Exacerbating factors: nothing Treatment prior to arrival: none Related Data Previous Rx's ?Medication ?Instructions ?Recorded meclizine 25 mg tablet 25 mg PO TID PRN dizziness #20 tabs 11/01/22 acetaminophen 325 mg capsule 650 mg (2 x 325 mg) PO Q6H PRN 03/09/23 (Tylenol) pain #30 caps ibuprofen 600 mg tablet 600 mg PO Q6H PRN pain #30 tabs 03/09/23 methocarbamol 1,000 mg tablet 1,000 mg PO TID #14 tabs 03/09/23 ibuprofen 600 mg tablet 600 mg PO TID PRN pain #20 tabs 05/12/23 methocarbamol 750 mg tablet 750 mg PO TID PRN muscle spasm #20 05/12/23 tabs hydroxyzine HCl 50 mg tablet 50 mg PO QID PRN anxiety 7 days 08/04/23 #28 tabs cephalexin 500 mg capsule 500 mg PO QID 7 days #28 caps 10/13/23 doxycycline hyclate 100 mg tablet 100 mg PO BID 7 days #14 tabs 10/13/23 Allergies Allergy/AdvReac Type Severity Reaction Status Date / Time SEAFOOD Allergy Unknown ANAPHYLAXIS Uncoded 03/08/24 07:51 Review of Systems Constitutional: Constitutional: Reports no additional constitutional complaints, Denies chills, Denies fever(s) and Denies night sweats Eyes: Eyes: Reports no additional eye complaints, Denies blurry vision, Denies change in vision, Denies diplopia, Denies eye discharge, Denies loss of vision and Denies eye pain ENT: Denies dizziness Cardiovascular: Cardiovascular: Reports no additional cardiovascular complaints, Reports chest pain, Denies lightheadedness, Denies Loss of Consciousness and Denies dyspnea Respiratory: Respiratory: Reports no additional respiratory complaints and Denies dyspnea Gastrointestinal: Gastrointestinal: Reports no additional gastrointestinal complaints, Denies abdominal pain, Denies melena, Denies hematochezia, Denies change in bowel habits and Denies change in stool character Genitourinary: Genitourinary: Reports no additional male genitourinary complaints, Denies hematuria, Denies oliguria, Denies difficulty urinating, Denies dysuria, Denies urinary frequency, Denies urinary hesitancy, Denies urinary incontinence and Denies urinary urgency Musculoskeletal: Musculoskeletal: Reports no additional musculoskeletal complaints, Denies numbness and Denies tingling Neurologic: Denies dizziness, Denies loss of vision, Denies numbness and Denies tingling Psychiatric: Psychiatric: Reports no additional psychiatric complaints Endocrine: Endocrine: Reports no additional endocrine complaints Hematologic/Lymphatic: Hematologic/Lymphatic: Reports no additional hematologic/lymphatic complaints Allergic/Immunologic: Allergic/Immunologic: Reports no additional allergic/immunologic complaints [facility] Past Medical History Attestation statement: The following information was validated with the patient. Source: old records reviewed and nursing notes reviewed Medical History No pertinent past medical history Social History Social History Alcohol intake: current Alcohol intake frequency: a few times a week Patient Tobacco Use Status: Never used Tobacco Advance Directives: No Advance Directives Information Provided: Yes Do you have a plan to hurt others: No Plan Physical Exam Vital Signs: Vital Signs: Last Vital Signs Temp 98.0 F 03/08/24 10:41 Pulse 67 03/08/24 10:41 Resp 16 03/08/24 10:41 BP 115/80 03/08/24 10:41 Pulse Ox 98 03/08/24 10:41 O2 Del Method Room Air 03/08/24 10:41 BMI result Body Mass Index 29.5 Const: General: cooperative, no acute distress, alert and awake Nutritional Appearance: well nourished Orientation/consciousness: patient oriented x3 Limitations: no limitations HEENT: Head: Yes normal to inspection and Yes atraumatic Ears: hearing grossly normal bilaterally and external ears normal General nose exam: Normal external nose present, no nasal discharge noted and no epistaxis Face and sinus: Yes normal facial exam, No abrasion and No laceration Mouth: Normal oral and palatal mucosa present, no drooling and no muffled voice Eyes: General: appearance normal, both eyes and all related structures Periorbital: periorbital findings normal Eyelids: Yes eyelids normal Conjunctivae: conjunctivae normal Pupils: Equal, round and reactive pupils present EOM: EOMs intact bilaterally Neck: Neck: Yes normal visual inspection, Yes full ROM and Yes no lymphadenopathy Chest: Chest palpation & inspection: normal inspection of the chest Resp: Effort & Inspection: normal respiratory effort and able to speak in complete sentences GI: Inspection: Yes normal to inspection Neuro: General: patient oriented x3 and moves all extremities Cranial nerves: Yes Equal, round and reactive pupils present Cognition (Neuro): normal cognition Motor exam (neuro): 5/5 motor strength present throughout Sensory Exam: Normal double simultaneous stimulation for sensation Coordination: [id number] test normal Extrem: General: Yes normal to inspection, Yes full ROM and Yes capillary refill normal Psych: Appearance: grossly normal Mental Status: mental status grossly normal Affect: normal affect Attitude: cooperative Thought process: Normal thought process present Thought content: Normal thought content present Insight: Good insight present (Psych) Medications Administered Discontinued Medications Generic Name Dose Route Start Last Admin Trade Name Freq PRN Reason Stop Dose Admin Cyclobenzaprine HCl 5 mg 03/08/24 10:25 03/08/24 10:35 Cyclobenzaprine Hcl 5 Mg Tablet PO 03/08/24 10:26 5 mg ONCE ONE Administration Ketorolac Tromethamine 15 mg 03/08/24 08:34 03/08/24 08:51 Ketorolac Tromethamine 15 Mg/Ml Vial IM 03/08/24 08:35 15 mg ONCE ONE Administration Medical Decision Making Medical Decision Making [facility] Narrative: Patient is a 38 year old assigned male at with no reported medical history presenting to the emergency department today with chest pain. Patient's physical exam was unremarkable. Patient's blood work was unremarkable. Patient's EKG was unremarkable. Patient's chest x-ray showed no acute process. I explained my physical exam findings as well as all test results to the patient. I answered all questions asked by the patient. I stressed the importance of the patient taking his medication as directed (either prescribed or as the over the counter packaging recommends). I stressed the importance of the patient following up with his primary care provider. I stressed the importance of the patient returning to the emergency department immediately if his symptoms were to worsen or if he were to develop any dizziness, shortness of breath, difficulty breathing, chest pain, blurry vision, loss of vision, nausea, vomiting, abdominal pain, fever, chills, back pain, or any other complaints. Patient verbalized agreement and understanding with this treatment plan and discharge. Differential Diagnosis Differential Diagnoses: The differential diagnosis associated with the presentation includes Chest pain Chest wall pain Atypical chest pain Costochondritis Admission/Observation Consideration of admission/observation: Escalation of care including admission/observation considered Patient would have been admitted to the hospital had his work up had any findings where hospital admission was appropriate and his clinical presentation warranted hospital admission. Lab Data [facility] Lab Attestation statement: I reviewed the patient's lab results. My interpretation of these results are in the [facility] Rationale portion of this note. 03/08/24 08:42 03/08/24 08:42 Labs: Lab Results 03/08/24 Range/Units 08:42 WBC 6.7 (4.8-10.8) X10*3/uL RBC 4.93 (4.60-5.80) X10*6/uL Hgb 15.1 (14.0-18.0) g/dl Hct 42.1 (42.0-52.0) % MCV 85.4 (80.0-98.0) fL MCH 30.6 (27.0-33.0) pg MCHC 35.9 (31.0-36.0) g/dl RDW 12.6 (11.0-16.0) % Plt Count 173 (160-400) X10*3/uL MPV 11.3 (9.4-12.4) fL Immature Gran % (Auto) 0.3 (0.0-0.4) % Neut % (Auto) 60.0 (45-73) % Lymph % (Auto) 27.5 (20-40) % [place] % (Auto) 9.4 (2-11) % Eos % (Auto) 2.2 (0-4) % Baso % (Auto) 0.6 (0-2) % Lymph # (Auto) 1.8 (1.2-4.9) X10*3/uL [place] # (Auto) 0.6 (0.1-1.2) X10*3/uL Eos # (Auto) 0.2 (0.0-0.4) X10*3/uL Baso # (Auto) 0.0 (0.0-0.2) X10*3/uL Abs Immat Gran (auto) 0.02 (0.00-0.03) X10*3/uL Absolute Neuts (auto) 4.0 (2.0-8.3) x10*3/uL Absolute Nucleated RBC 0.000 (0.0-0.012) X10*3/uL Nucleated RBC % (auto) 0.0 (0.0-0.2) /100WBC PT 11.3 (11.1-13.3) SEC INR 0.9 (0.9-1.1) Sodium 141 (135-145) mmol/L Potassium 4.2 (3.3-5.1) mmol/L Chloride 104 (96-108) mmol/L Carbon Dioxide 27 (22-29) mmol/L Anion Gap 14 (12-20) BUN 15 (9-16) mg/dL Creatinine 0.81 (0.5-1.4) mg/dL Estim Creat Clear Calc 140.3 Estimated GFR > 60 Random Glucose 97 (60-115) mg/dL Calcium 9.5 (8.4-10.2) mg/dL Troponin I High Sens 3.5 (<3.5-35.0) ng/L Independent Interpretation I performed an independent interpretation of an: EKG and Plain X-Ray Interpretation: My interpretation is in agreement with the radiologist's impression of this imaging study. EXAMINATION: XR CHEST CLINICAL INFORMATION: Bradycardia COMPARISON: 09/30/2021 TECHNIQUE: Frontal view of the chest was obtained. FINDINGS: Lungs are mildly hypoinflated with some minimal basilar atelectasis. Allowing for this, no significant abnormality is noted involving the heart, lungs, mediastinum, bony thorax or soft tissues. XR/XR chest 1V IMPRESSION: No acute intrathoracic disease. Dictated By: Gray Griffin MD Signed By: Electronically signed by Gray Griffin MD 03/08/24 1008 Vent. Rate: 081 BPM Atrial Rate: 081 BPM P-R Int: 158 ms QRS Dur: 094 ms QT Int: 358 ms P-R-T Axes: 034 -21 024 degrees QTc Int: 415 ms Normal sinus rhythm Normal ECG When compared with ECG of 12-FEB-2020 11:50, No significant change was found DD/ [id number] Radiology Impression Discussion of test interpretation with radiology: I have reviewed the radiologist's reading. Discharge Plan Discharge Clinical Impression: Atypical chest pain Patient Disposition: Home, Self-Care Instructions: Chest Pain (ED) Additional Instructions: Follow up with your primary care provider. Return to the emergency department immediately if your symptoms worsen or if you develop any dizziness, shortness of breath, difficulty breathing, chest pain, blurry vision, loss of vision, nausea, vomiting, abdominal pain, fever, chills, back pain, or any other complaints. Prescriptions: No Action meclizine 25 mg tablet 25 mg PO TID PRN (Reason: dizziness) Qty: 20 0RF ibuprofen 600 mg tablet 600 mg PO Q6H PRN (Reason: pain) Qty: 30 0RF acetaminophen [Tylenol] 325 mg capsule 650 mg PO Q6H PRN (Reason: pain) Qty: 30 0RF methocarbamol 1,000 mg tablet 1,000 mg PO TID Qty: 14 0RF ibuprofen 600 mg tablet 600 mg PO TID PRN (Reason: pain) Qty: 20 0RF methocarbamol 750 mg tablet 750 mg PO TID PRN (Reason: muscle spasm) Qty: 20 0RF hydroxyzine HCl 50 mg tablet 50 mg PO QID PRN (Reason: anxiety) 7 Days Qty: 28 0RF cephalexin 500 mg capsule 500 mg PO QID 7 Days Qty: 28 0RF doxycycline hyclate 100 mg tablet 100 mg PO BID 7 Days Qty: 14 0RF Referrals: [facility] Family Medicine [Provider Group] (Call to establish and follow up with a primary care provider. If you already have a primary care provider, please follow up with them.) [facility] [Provider Group] [facility] [Provider Group] Stand Alone Forms: Work/School Release Interventions: ED Discharge Assessment Last Done: 03/08/24 10:41 Discharge Date/Time: 03/08/24 10:41 Print Language: Nigerian
[2024-03-08 08:45] LABS: MANUAL DIFF FLAG NO
[2024-03-08 08:46] LABS: Basophils Percent Auto 0.6 % (0-2); Eosinophils Absolute Auto 0.2 X10*3/uL (0.0-0.4); Eosinophils Percent Auto 2.2 % (0-4); Hematocrit 42.1 % (42.0-52.0); Hemoglobin 15.1 g/dl (14.0-18.0); Imm Gran Abs Auto 0.02 X10*3/uL (0.00-0.03); Imm Gran Pct Auto 0.3 % (0.0-0.4); Lymphocytes Absolute Auto 1.8 X10*3/uL (1.2-4.9); Lymphocytes Percent Auto 27.5 % (20-40); Mean Corpuscular HGB Conc 35.9 g/dl (31.0-36.0); Mean Corpuscular Hemoglobin 30.6 pg (27.0-33.0); Mean Corpuscular Volume 85.4 fL (80.0-98.0); Mean Platelet Volume 11.3 fL (9.4-12.4); Monocytes Absolute Auto 0.6 X10*3/uL (0.1-1.2); Monocytes Percent Auto 9.4 % (2-11); Platelet Count 173 X10*3/uL (160-400); Red Blood Count 4.93 X10*6/uL (4.60-5.80); Red Cell Distribution Width 12.6 % (11.0-16.0); White Blood Count 6.7 X10*3/uL (4.8-10.8)
[2024-03-08] MEDS: Ketorolac Tromethamine 15 MG/ML VIAL IM (08:51)
[2024-03-08 08:52] LABS: INTERNATIONAL NORM RATIO 0.9 (0.9-1.1); Prothrombin Time 11.3 SEC (11.1-13.3)
[2024-03-08 08:59] LABS: Anion Gap 14 (12-20); Blood Urea Nitrogen 15 mg/dL (9-16); Calcium 9.5 mg/dL (8.4-10.2); Carbon Dioxide 27 mmol/L (22-29); Chloride 104 mmol/L (96-108); Creatinine Clr Calc Pharmacy 140.3; Estimated Glomerular Filt Rate > 60; Glucose Random 97 mg/dL (60-115); Potassium 4.2 mmol/L (3.3-5.1); Sodium 141 mmol/L (135-145)
--- NOTE | 2024-03-08 09:07 | PC.NURSE ---
IV established, labs obtained and sent. placed on classroom monitor - nsr. resting quietly in room, medicated per the NOV. call dockery within reach.
[2024-03-08 09:08] LABS: Troponin-I High Sensitivity 3.5 ng/L (<3.5-35.0)
[2024-03-08 10:32] VITALS: BP 115/80; PULSE 67; RESP 16; TEMP 36.7; O2SAT 98
[2024-03-08] MEDS: Cyclobenzaprine HCl 5 MG TABLET PO (10:35)
[2024-03-08 10:41] VITALS: BP 115/80; PULSE 67; RESP 16; TEMP 36.7; O2SAT 98
== END 2024-03-08 10:41 | disposition home or self-care (01) ==
PROVIDERS: Emergency Provider Emergency Medicine
DX: R07.89 Other chest pain (principal)
CPT/HCPCS: 36415; 71045; 80048; 84484; 85025; 85610; 93005; 96372; 99284; 99285; J1885

== ENCOUNTER → 2024-03-08 07:38 | Outpatient (BNV) | payer MEDICAID, SELFPAY | PROVIDERS: Emergency Provider Emergency Medicine; Visit Provider Internal Medicine Cardiovascular Disease | DX: R07.9 Chest pain, unspecified (principal) | CPT/HCPCS: 93010 ==